=== PATIENT | male | born 1940 | race Caucasian/White ===

== ENCOUNTER → 2016-11-02 | Outpatient (CLI) | payer MEDICARE ==
--- NOTE | 2016-11-02 10:19 | XR ---
EXAMINATION TYPE: XR cervical spine comp DATE OF EXAM: 11/02/2016 10:01 AM COMPARISON: NONE HISTORY: Pain The odontoid is intact. There are no compression deformities. The prevertebral soft tissue structur es are within normal limits. Multilevel facet arthropathy seen. Severe degenerative disc disease C5- C6 and C6-C7 with posterior spondylosis. Foraminal encroachment suggested. Calcification soft tissue the neck likely vascular. IMPRESSION: 1. Multilevel degenerative disc disease. Consider follow-up MRI..
--- NOTE | 2016-11-02 10:20 | XR ---
EXAMINATION TYPE: XR chest 2V DATE OF EXAM: 11/02/2016 10:01 AM COMPARISON: 06/22/2014 HISTORY: COPD FINDINGS: Hyperinflation suggests COPD. No overt failure. No consolidation. No pneumothorax. Hypertrophic mccormack e of the spine and atherosclerotic change aorta. Subsegmental atelectasis involving the right middle lobe suspected. IMPRESSION: 1. No acute process. Correlate for COPD. 2. Minimal blunting of the costophrenic angles on the lateral view could be related to tiny amount of pleural fluid or pleural thickening.
--- NOTE | 2016-11-02 10:22 | XR ---
EXAMINATION TYPE: XR knee complete RT DATE OF EXAM: 11/02/2016 10:01 AM COMPARISON: None HISTORY: Right knee pain FINDINGS: Postsurgical changes in near-anatomic alignment. There is osteopenic changes involving the tibial kary teau. Remote posttraumatic change involving the fibula. No acute fracture. No dislocation. Vascular calcifications are seen. IMPRESSION: 1. Postoperative change. If there is concern for infection or loosening correlate with nuclear medici ne exam.
--- NOTE | 2016-11-02 10:24 | XR ---
EXAM TYPE: LUMBAR SPINE X RAY SERIES COMPARISON: NONE HISTORY: Back pain FINDINGS: Alignment is anatomic. The pedicles are intact. The transverse processes are intact. There is diff use osteopenia and multilevel degenerative disc disease with facet arthropathy. Scoliotic curvature n oted. IMPRESSION: 1. Multilevel degenerative disc disease and scoliosis..
== END | disposition home or self-care (01) ==
LOC: RADXRMAIN 09:31
PROVIDERS: ATTEND Family Medicine
DX: M50.10 Cervical disc disorder with radiculopathy, unspecified cervical region (principal); R91.8 Other nonspecific abnormal finding of lung field; M46.96 Unspecified inflammatory spondylopathy, lumbar region; M51.36 Other intervertebral disc degeneration, lumbar region; Z96.659 Presence of unspecified artificial knee joint
CPT/HCPCS: 71020; 72050; 72100

== ENCOUNTER → 2016-11-21 | Outpatient (CLI) | payer MEDICARE ==
--- NOTE | 2016-11-21 13:31 | NM ---
EXAMINATION TYPE: NM bone 3 phase DATE OF EXAM: 11/21/2016 1:23 PM COMPARISON: NONE HISTORY: Right knee pain Triple phase bone scintigraphy was performed following the injection of 26.6 mCi Tc 99m MDP. Immedia te images and 4 hours post injection images acquired. FINDINGS: There is symmetric flow to both knees. There appear to be photopenic defects compatible with previous prostheses. There is increased soft tissue uptake laterally on the right. Delayed imaging demonstrates slightly a symmetric uptake involving the posterior margin of the right tibia. IMPRESSION: Increased soft tissue uptake along the lateral margin of the right prostheses appears to be within th e soft tissues. There does appear to be slightly asymmetric uptake involving the posterior tibia on t he right is nonspecific and likely postsurgical. No diagnostic evidence of infection or loosening. If there is high clinical concern correlate with tagged WBC study.
== END | disposition home or self-care (01) ==
LOC: RADNMMAIN 07:23
PROVIDERS: ATTEND Orthopaedic Surgery
DX: M79.661 Pain in right lower leg (principal); Z96.652 Presence of left artificial knee joint
CPT/HCPCS: 78315; A9503

== ENCOUNTER → 2016-12-19 | Outpatient (CLI) | payer MEDICARE ==
--- NOTE | 2016-12-19 15:51 | US ---
EXAMINATION TYPE: US kidneys/renal and bladder DATE OF EXAM: 12/19/2016 3:10 PM COMPARISON: Prior kidney ultrasound 18 March 2015 CLINICAL HISTORY: N39.0 Recurrent UTI. EXAM MEASUREMENTS: Right Kidney: 10.6 x 4.1 x 4.7 cm Left Kidney: 10.7 x 6.0 x 5.5 cm TECHNOLOGIST IMPRESSION: wnl Right Kidney: lateral cyst measuring 2.1 x 1.1 x 1.4 cm Left Kidney: medial cyst measuring 2.1 x 2.1 x 2.6 cm Bladder: wnl Bilateral Jets seen: Yes There is no evidence for hydronephrosis at this point in time. No nephrolithiasis is seen. No daniel s are identified. The urinary bladder is anechoic. Bilateral ureteral jets are seen. Renal cysts are essentially stable and are simple in appearance. Inferior mass effect on the bladder is again noted likely due to enlarged prostate. IMPRESSION: Similar findings to prior exam. Prostatic enlargement. Simple cysts bilaterally within the kidneys.
== END | disposition home or self-care (01) ==
LOC: RADUSWWP 14:49
PROVIDERS: ATTEND Urology
DX: N40.0 Benign prostatic hyperplasia without lower urinary tract symptoms (principal); N28.1 Cyst of kidney, acquired; N39.0 Urinary tract infection, site not specified
CPT/HCPCS: 76770

== ENCOUNTER → 2017-01-10 | Outpatient (CLI) | payer MEDICARE ==
--- NOTE | 2017-01-10 10:01 | MR ---
EXAMINATION TYPE: MR lumbar spine wo con DATE OF EXAM: 01/10/2017 9:39 AM COMPARISON: 01/06/2011 HISTORY: Low back pain TECHNIQUE: T1 and T2 axial and sagittal images of the lumbar spine are submitted. FINDINGS: There is no abnormal signal seen within the visualized spinal cord or paraspinal soft tissu es. At T12-L1 there is mild hypertrophic change of the facets. No canal stenosis or disc herniation. Neur al foramina patent. At L1-2 there is mild disc desiccation and facet arthropathy. No canal stenosis or foraminal encroach ment. No disc herniation. At L2-3 there is circumferential disc bulging with moderate facet arthropathy and ligamentum flavum h ypertrophy. Borderline to mild canal stenosis with mild to moderate bilateral foraminal encroachment. At L3-4 there is slight anterior listhesis. Severe facet arthropathy and ligamentum flavum hypertroph y. Moderate bilateral foraminal encroachment. Borderline to mild canal stenosis. At L4-5 there is moderate facet arthropathy greater on the right. There is mild to moderate bilateral foraminal encroachment greater on the right. No canal stenosis or focal herniation. At L5-S1 there is facet arthropathy but no disc herniation, canal stenosis, or foraminal encroachment . IMPRESSION: 1. Multilevel facet arthropathy and foraminal encroachment as discussed above with borderline to mild canal stenosis L2-3 and L3-L4. 2. T11-T12 is only included on the sagittals but there appears to be a left paracentral disc bulge.
== END | disposition home or self-care (01) ==
LOC: RADMRIMAIN 08:52
PROVIDERS: ATTEND Physical Medicine & Rehabilitation
DX: M48.06 Spinal stenosis, lumbar region (principal); M46.96 Unspecified inflammatory spondylopathy, lumbar region
CPT/HCPCS: 72148

== ENCOUNTER → 2017-03-09 | Outpatient (CLI) | payer MEDICARE ==
--- NOTE | 2017-03-10 07:50 | MR ---
MRI CERVICAL SPINE: CLINICAL HISTORY: Cervicalgia, spondylolisthesis, and spondylosis without myelopathy or radiculopathy all per order. Headaches with chronic neck pain for years per patient. TECHNIQUE: Multiplanar, multisequence imaging of the cervical spine is performed without IV contrast. COMPARISON: None. FINDINGS: Sagittal images of the cervical spine show the craniocervical junction to appear within nor mal limits. The cervical and upper thoracic spinal cord is normal in course, caliber, and signal. V ertebral alignment is anatomic. The vertebral body heights are normal. There is moderate disc space narrowing C5-C6 and C6-C7 levels. Multiple small posterior disc herniations and spur disc complexes a re seen on sagittal images. There is mild to moderate anterior spurring in the mid to lower cervical spine. The bone marrow signal intensity is within normal limits. Axial images shows right paracentral broad-based disc protrusion effacing anterolateral thecal sac wi th asymmetric mild to moderate right-sided neural foraminal narrowing as there is some marginal spurr ing present near axial image 45, left-sided neural foramen is patent. Axial images at C3-C4 level show uncovertebral facet degenerative changes bilaterally. There is right paracentral/foraminal spur disc complex effacing anterolateral thecal sac. There is moderate right a nd mild left-sided neural foraminal narrowing at this level identified. Axial images at C4-C5 level show uncovertebral facet degenerative changes bilaterally causing asymmet lila mild left greater than right neural foraminal narrowing. There is small central disc protrusion m inimally effacing anterior thecal sac on axial image 31. Axial images at C5-C6 level show right paracentral spur disc complex effacing anterolateral thecal sa c up to ventral surface of spinal cord with marginal spurring causing moderate to severe bilateral ne ural foraminal narrowing on axial image 22. Axial images at C6-C7 level show lobulated broad-based posterior disc protrusion effacing anterior th ecal sac and causing moderate bilateral neural foraminal narrowing. Axial images at C7-T1 level are felt within normal limits. IMPRESSION: Multilevel degenerative changes in the cervical spine as detailed above most prominent at C5-C6 level.
== END | disposition home or self-care (01) ==
LOC: RADMRIMAIN 15:34
PROVIDERS: ATTEND Physical Medicine & Rehabilitation
DX: M47.812 Spondylosis without myelopathy or radiculopathy, cervical region (principal); Z96.653 Presence of artificial knee joint, bilateral
CPT/HCPCS: 72141

== ENCOUNTER → 2017-12-01 | Outpatient (CLI) | payer MEDICARE ==
[2017-12-01 10:25] LABS: Basophils # (A) 0.1 k/uL (0-0.2); Basophils % (A) 1 %; Eosinophils # (A) 0.3 k/uL (0-0.7); Eosinophils % (A) 5 %; HCT 44.6 % (39.0-53.0); HGB 14.6 gm/dL (13.0-17.5); Lymphocytes # (A) 1.4 k/uL (1.0-4.8); Lymphocytes % (A) 24 %; MCH 32.8 pg (25.0-35.0); MCHC 32.8 g/dL (31.0-37.0); MCV 100.2 fL (80.0-100.0); Mean Platelet Volume 7.2; Monocytes # (A) 0.3 k/uL (0-1.0); Monocytes % (A) 4 %; Neutrophils # (A) 3.8 k/uL (1.3-7.7); Neutrophils % (A) 65 %; Platelet Count 198 k/uL (150-450); RBC 4.46 m/uL (4.30-5.90); RDW 12.5 % (11.5-15.5)
[2017-12-01 11:54] LABS: Erythrocyte Sedimentation Rate 2 mm/hr (0-15)
== END | disposition home or self-care (01) ==
LOC: LABWHC1 09:47
PROVIDERS: ATTEND Physical Medicine & Rehabilitation
DX: M50.321 Other cervical disc degeneration at C4-C5 level (principal); M47.812 Spondylosis without myelopathy or radiculopathy, cervical region; M79.1 Myalgia
CPT/HCPCS: 36415; 85025; 85652; 86140

== ENCOUNTER → 2018-01-05 | Outpatient (CLI) | payer MEDICARE ==
[2018-01-05 14:40] LABS: HCT 40.4 % (39.0-53.0); MCH 33.6 pg (25.0-35.0); MCHC 34.7 g/dL (31.0-37.0); MCV 96.7 fL (80.0-100.0); Mean Platelet Volume 6.9; Platelet Count 208 k/uL (150-450); RBC 4.18 m/uL (4.30-5.90); RDW 12.4 % (11.5-15.5); WBC 5.8 k/uL (3.8-10.6)
[2018-01-05 15:38] LABS: T4, Free (Free Thyroxine) 0.87 ng/dL (0.78-2.19)
== END | disposition home or self-care (01) ==
LOC: LABWHC1 14:06
PROVIDERS: ATTEND Internal Medicine Cardiovascular Disease
DX: E03.9 Hypothyroidism, unspecified (principal); I10 Essential (primary) hypertension
CPT/HCPCS: 36415; 84439; 84443; 85027

== ENCOUNTER → 2018-01-11 | Outpatient (CLI) | payer MEDICARE ==
--- NOTE | 2018-01-15 13:27 | ECHOF ---
Referral Reason:R07.89 Other chest pain MEASUREMENTS -------- HEIGHT: 162.6 cm WEIGHT: 79.4 kg BP: IVSd: 1.2 cm (0.6 - 1.1) LVIDd: 4.5 cm (3.9 - 5.3) LVPWd: 1.3 cm (0.6 - 1.1) IVSs: 1.5 cm LVIDs: 3.3 cm LVPWs: 1.5 cm LA Diam: 3.0 cm (2.7 - 3.8) LAESV Index (A-L): 39.09 ml/m Ao Diam: 4.0 cm (2.0 - 3.7) LA Diam: 3.5 cm (2.7 - 3.8) AV Cusp: 2.2 cm (1.5 - 2.6) EPSS: 0.4 cm MV E Adilson: 0.51 m/s MV DecT: 220 ms MV A Adilson: 0.67 m/s MV E/A Ratio: 0.77 AR PHT: 670 ms RAP: 5.00 mmHg RVSP: 28.82 mmHg MV EF SLOPE: 103.93 mm/s (70 - 150) MV EXCURSION: 20.65 mm (> 18.000) FINDINGS -------- Sinus rhythm. This was a technically good study. The left ventricular size is normal. There is mild concentric left ventricular hypertrophy. Overa ll left ventricular systolic function is normal with, an EF between 55 - 60 %. The right ventricle is normal in size. LA is moderately dilated 34-39 ml/m2 The right atrial size is normal. There is mild aortic valve sclerosis. There is mild aortic regurgitation. Mild mitral annular calcification present. Mild mitral regurgitation is present. Mild tricuspid regurgitation present. There is no evidence of pulmonary hypertension. The right v entricular systolic pressure, as measured by Doppler, is 28.82mmHg. There is no pulmonic regurgitation present. Aortic Root is mildly dilated and measures 4.0cm. There is no pericardial effusion. CONCLUSIONS -------- 1. The left ventricular size is normal. 2. There is mild concentric left ventricular hypertrophy. 3. Overall left ventricular systolic function is normal with, an EF between 55 - 60 %. 4. LA is moderately dilated 34-39 ml/m2 5. There is mild aortic valve sclerosis. 6. There is mild aortic regurgitation. 7. Mild mitral annular calcification present. 8. Mild mitral regurgitation is present. 9. Mild tricuspid regurgitation present. 10. There is no evidence of pulmonary hypertension. 11. The right ventricular systolic pressure, as measured by Doppler, is 28.82mmHg. 12. There is no pulmonic regurgitation present. 13. There is no pericardial effusion. PASSENGER SERVICE SUPERVISOR: Lorna Bain RDCS
== END | disposition home or self-care (01) ==
LOC: RADECHMAIN 08:32
PROVIDERS: ATTEND Family Medicine
DX: I08.3 Combined rheumatic disorders of mitral, aortic and tricuspid valves (principal)
CPT/HCPCS: 93306

== ENCOUNTER → 2018-01-29 | Outpatient (CLI) | payer MEDICARE | END | disposition home or self-care (01) | LOC: LABWHC1 15:56 | PROVIDERS: ATTEND Family Medicine | DX: R42 Dizziness and giddiness (principal) | CPT/HCPCS: 36415; 82565 ==

== ENCOUNTER → 2018-01-31 | Outpatient (CLI) | payer MEDICARE ==
--- NOTE | 2018-01-31 09:29 | MR ---
EXAMINATION TYPE: MR brain wo/w con DATE OF EXAM: 01/31/2018 COMPARISON: NONE HISTORY: 77-year-old male Dizziness and giddiness TECHNIQUE: Multiplanar, multisequence images of the brain and brainstem were acquired before and aft er administration of 7.5 mL IV Gadavist. Diffusion weighted imaging is performed. FINDINGS: No evidence for acute infarction, hemorrhage, mass, mass effect, midline shift, herniation, effacemen t of basal cisterns, or extra-axial fluid collection. There is moderate generalized supratentorial volume loss. No hydrocephalus. Major intracranial flow voids are intact. T2/FLAIR weighted sequences show moderate to severe scattered burden of right white matter change in the subcortical, deep white matter, and periventricular regions of both cerebral hemispheres. Midline structures demonstrate normal morphology. The craniocervical junction is normal. Post contrast images demonstrate no evidence of pathologic enhancement. Dural venous sinuses are pat ent. Moderate to severe mucosal thickening in the ethmoid air cells and left frontal sinus and mild within the right frontal and bilateral maxillary sinuses. Globes are intact with prior cataract surgery. Prominent retained fluid throughout the right mastoid air cells and a small amount in the inferior le ft mastoid air cells. IMPRESSION: 1. Moderate cerebral atrophy. No acute intracranial abnormality seen. 2. Moderate to severe scattered burden of T2 bright white matter change in the cerebral hemispheres. Some differential considerations include changes of chronic small vessel ischemic disease, demyelina ting disease, hypertension, vasculitis/Lyme disease, and severe chronic migraines. 3. Trapped fluid in the right greater than left mastoid air cells. Correlate for any mastoid pain to exclude mastoiditis. 4. Moderate chronic paranasal sinus disease.
== END ==
LOC: RADMRIMAIN 08:11
PROVIDERS: ATTEND Family Medicine
DX: G31.9 Degenerative disease of nervous system, unspecified (principal); R90.89 Other abnormal findings on diagnostic imaging of central nervous system; R93.8 Abnormal findings on diagnostic imaging of other specified body structures
CPT/HCPCS: 70553; A9581

== ENCOUNTER → 2018-08-27 | Outpatient (CLI) | payer MEDICARE ==
[2018-08-27 11:53] LABS: Blood Urea Nitrogen 14 mg/dL (9-20)
--- NOTE | 2018-08-27 13:25 | CT ---
EXAMINATION TYPE: CT abdomen pelvis wo/w con DATE OF EXAM: 08/27/2018 COMPARISON: None HISTORY: Gross hematuria. CT DLP: 1067.5 mGycm CONTRAST: CT scan of the abdomen and pelvis is performed with Oral Contrast and without and with IV Contrast, p atient injected with 100 mL of Isovue M300. FINDINGS: LUNG BASES-: No visible nodule. No infiltrate. LIVER/GB: No calcified gallstones. No space occupying hepatic lesion. Biliary tree is of normal ca liber. PANCREAS: No inflammation. No distinct mass. Focal peripancreatic calcification. SPLEEN: No splenic enlargement. No lesion seen. ADRENALS: No nodule. No thickening. KIDNEYS/BLADDER: No hydronephrosis. No nephrolithiasis. No distinct solid renal mass. [address] cyst right kidney. Dominant simple cyst lower pole left kidney measures 2.6 cm. Urinary bladder g rossly unremarkable. BOWEL: Normal appendix. Normal bowel caliber. No inflammation. Moderate fecal stasis. GENITAL ORGANS: Prostate gland enlargement LYMPH NODES: No greater than 1cm abdominal or pelvic lymph nodes are appreciated. AORTA: No significant abnormality. OSSEOUS STRUCTURES: No significant abnormality is seen. OTHER: No significant additional abnormality is seen. IMPRESSION: 1.
== END | disposition home or self-care (01) ==
LOC: RADCTMAIN 11:13
PROVIDERS: ATTEND Family Medicine
DX: R31.9 Hematuria, unspecified (principal)
CPT/HCPCS: 82565; 84520; 74178; 36415; Q9967

== ENCOUNTER 2018-10-25 09:02 | Day surgery (SDC) | payer MEDICARE ==
[2018-10-24 10:26] VITALS: BMI 24.0
[~2018-10-25 09:02] MED LIST: LACTATED RINGERS 1,000 ML IV SCH; LIDOCAINE 1% 20 ML VIAL (10MG/ML) FOR IV START INTRADERMA PRN
[2018-10-25 10:01] VITALS: TEMP 97.6
[2018-10-25] MEDS ORDERED: PROPOFOL 10 MG/ML 20 ML VIAL IV ONE (11:14)
[2018-10-25] MEDS ORDERED: LIDOCAINE 1% INJ 10MG/ML (20 ML MDV) ONE (11:14)
--- NOTE | 2018-10-25 12:09 | P.PCN ---
Date of Procedure: 10/25/18 Procedure(s) Performed: Procedure: Total colonoscopy. Preoperative diagnosis: Screening for neoplasia. Patient has history of polyps. Postoperative diagnosis: Sigmoid diverticulosis with no evidence of acute diverticulitis, strictures, polyps or cancer. Preparation: HalfLytely prep. Sedation: Was provided by anesthesia. Brief clinical history: The patient is a 77-year-old male who is scheduled for this evaluation for screening for neoplasia age being his risk factor. He had history of polyps. Last colonoscopy in 2009. The patient has no abdominal complaints, bleeding or anemia. Procedure: With the patient on his left lateral decubitus position and after informed consent and adequate sedation, the perianal area was inspected and it did not show any fissures or fistulas. There were no masses felt on digital rectal examination. The Olympus CFH 190LVideo colonoscope was then inserted in the rectum in the usual fashion and advanced to the cecum. There were multiple diverticular orifices seen scattered in the sigmoid but I saw no evidence of acute diverticulitis or strictures. No polyps or tumors were seen. I retroflexed the endoscope in the rectum before the endoscope was withdrawn. The patient tolerated the procedure well. Plan: The patient was reassured. Discussed dietary measures. At his age, I did not schedule repeat exam in 5 years and that can be kept as a contingency based on his overall health at that time. He will discuss that with you and he will follow with you as planned
[2018-10-25 12:10] VITALS: BP 147/78; PULSE 78; RESP 18
== END 2018-10-25 12:21 | disposition home or self-care (01) ==
LOC: ORWHC2ENDO 09:02
DX: Z12.11 Encounter for screening for malignant neoplasm of colon (principal); K57.30 Diverticulosis of large intestine without perforation or abscess without bleeding; Z86.010 Personal history of colon polyps; K21.9 Gastro-esophageal reflux disease without esophagitis; I25.10 Atherosclerotic heart disease of native coronary artery without angina pectoris; I10 Essential (primary) hypertension; I25.2 Old myocardial infarction; M19.90 Unspecified osteoarthritis, unspecified site; N40.0 Benign prostatic hyperplasia without lower urinary tract symptoms; Z79.01 Long term (current) use of anticoagulants; Z79.891 Long term (current) use of opiate analgesic; Z79.899 Other long term (current) drug therapy
CPT/HCPCS: J2001; J2704; G0105

== ENCOUNTER 2020-03-25 10:24 | Day surgery (SDC) | payer MEDICARE ==
[2020-03-24 09:15] VITALS: BMI 21.2
[~2020-03-25 10:24] MED LIST changes: -LIDOCAINE 1% 20 ML VIAL (10MG/ML) FOR IV START INTRADERMA PRN
[2020-03-25 11:18] VITALS: RESP 16; TEMP 97.8
[2020-03-25] MEDS ORDERED: PROPOFOL 10 MG/ML 20 ML VIAL IV ONE (12:05)
[2020-03-25] MEDS ORDERED: LIDOCAINE 1% INJ 10MG/ML (20 ML MDV) ONE (12:05)
--- NOTE | 2020-03-25 12:17 | P.PCN ---
Date of Procedure: 03/25/20 Procedure(s) Performed: BRIEF HISTORY: Patient is a 79-year-old, pleasant, male scheduled for an upper endoscopy as part of evaluation of progressive dysphagia to solids and liquids for the last 2 years duration.. PROCEDURE PERFORMED: Esophagogastroduodenoscopy with biopsy. PREOPERATIVE DIAGNOSIS: Dysphagia to solids and liquids of 2 years duration. IV sedation per anesthesia. PROCEDURE: After informed consent was obtained, the patient was brought into the endoscopy unit. IV sedation was administered by Anesthesia under continuous monitoring. Initially the Olympus GIF-140 video endoscope was inserted into the mouth. Esophagus intubated without any difficulty. It was gradually advanced into the distal esophagus and the lower esophageal sphincter appeared tight but with gentle pressure I was able to push the scope into the stomach and duodenum and carefully examined. The bulb and the second part of the duodenum appeared normal. The scope at this time was withdrawn to the stomach, adequately insufflated with air, and upon careful examination, mucosa of the antrum, body, cardia and the fundus appeared normal. The scope was then withdrawn into the esophagus. The GE junction was located at 41 cm from the incisors. The LES once again appeared tight but no obvious stricture identified. The esophagus appeared normal. There were no erosions or ulcerations seen. Biopsies were done from the mid and distal esophagus and the patient tolerated the procedure well. IMPRESSION: 1. Tight lower esophageal sphincter but no obvious esophagitis or esophageal stricture identified. RECOMMENDATIONS: The findings of this examination were discussed with the patient as well as his family. He will begin given a trial of Prilosec 20 mg daily for 4 weeks. He'll be seen in office in 4 weeks and if he still has persistent symptoms we will schedule for esophageal manometry to evaluate for es ophageal dysmotility/esophageal achalasia
[2020-03-25 12:54] VITALS: BP 138/71; PULSE 61
== END 2020-03-25 12:56 | disposition home or self-care (01) ==
LOC: ORWHC2ENDO 10:24
PROVIDERS: ATTEND Internal Medicine Gastroenterology
DX: K21.0 Gastro-esophageal reflux disease with esophagitis (principal); I25.2 Old myocardial infarction; I25.10 Atherosclerotic heart disease of native coronary artery without angina pectoris; I10 Essential (primary) hypertension; N40.0 Benign prostatic hyperplasia without lower urinary tract symptoms; Z79.01 Long term (current) use of anticoagulants; Z79.899 Other long term (current) drug therapy
CPT/HCPCS: 88305; 43239; J2001; J2704

== ENCOUNTER → 2020-05-16 | Outpatient (CLI) | payer MEDICARE ==
--- NOTE | 2020-05-16 08:19 | CT ---
EXAMINATION TYPE: CT chest wo con DATE OF EXAM: 05/16/2020 COMPARISON: 11/18/2014 HISTORY: hemoptysis CT DLP: 199.5 mGycm. Automated Exposure Control for Dose Reduction was Utilized. TECHNIQUE: CT scan of the thorax is performed without IV contrast. FINDINGS: LUNGS: Diffuse emphysematous changes with subsegmental areas of consolidation. Basilar bronchiectasis noted. No suspicious masses seen.. MEDIASTINUM: Lack of IV contrast is noted to limit evaluation for mediastinal and especially hilar ad enopathy. There are no definitive greater than 1 cm hilar or mediastinal lymph nodes. The heart is en larged and there is coronary artery calcification. Ascending aorta measures 4 cm compatible with mild aneurysmal dilation. A trace of pericardial fluid. OTHER: Hypertrophic and degenerative changes of the spine. Calcification along the anterior margin th e spleen noted.. IMPRESSION: 1. Diffuse COPD with subsegmental areas of consolidation most typical of atelectasis. No suspicious p ulmonary mass. 2. Cardiomegaly with coronary artery atherosclerotic changes correlate clinically.
== END | disposition home or self-care (01) ==
LOC: RADCTMAIN 07:44
PROVIDERS: ATTEND Family Medicine
DX: J98.11 Atelectasis (principal); I51.7 Cardiomegaly; I25.10 Atherosclerotic heart disease of native coronary artery without angina pectoris
CPT/HCPCS: 71250

== ENCOUNTER → 2020-07-01 | Outpatient (CLI) | payer MEDICARE ==
[2020-07-01 10:32] LABS: HCT 39.4 % (39.0-53.0); HGB 12.9 gm/dL (13.0-17.5); MCH 33.2 pg (25.0-35.0); MCHC 32.7 g/dL (31.0-37.0); MCV 101.7 fL (80.0-100.0); Platelet Count 281 k/uL (150-450); RBC 3.87 m/uL (4.30-5.90); RDW 12.9 % (11.5-15.5); WBC 7.6 k/uL (3.8-10.6)
[2020-07-01 18:41] LABS: African American GFR (CKD) 97.8 (60.0-200.0); BUN/Creat Ratio 17.5 Ratio (12.00-20.00); Calcium 8.6 mg/dL (8.7-10.3); Non-African American GFR(CKD) 84.4 (60.0-200.0); Potassium 4.5 mmol/L (3.5-5.5)
[2020-07-01 18:42] LABS: Chol/HDL Ratio 3.37; LDL Cholesterol,Calculated 85.2 mg/dL (0.0-131.0); VLDL Calculation 16.8 mg/dL (5.00-40.00)
== END | disposition home or self-care (01) ==
LOC: LABWHC1 09:07
PROVIDERS: ATTEND Internal Medicine Cardiovascular Disease
DX: E78.2 Mixed hyperlipidemia (principal)
CPT/HCPCS: 36415; 80048; 80061; 84443; 84450; 84460; 85027

== ENCOUNTER → 2021-04-07 | Outpatient (CLI) | payer MEDICARE ==
--- NOTE | 2021-04-11 22:12 | MR ---
EXAMINATION TYPE: MR lumbar spine wo con DATE OF EXAM: 04/07/2021 COMPARISON: 01/10/2017 HISTORY: 80-year-old male LBP, radiates into right hip. TECHNIQUE: Multiplanar, multisequence images of the lumbar spine were acquired. FINDINGS: Mildly aneurysmal upper abdominal aorta at 3.1 cm. Borderline ectasia infrarenal abdominal aorta 2.5 cm. Multiple renal cortical cysts are present measuring up to 3.1 cm. Vertebral body heights are preserved. Hypertrophic facet arthropathy throughout. Ligamentum flavum thickening throughout. Accentuated lumba r lordosis. Degenerative grade 1 anterolisthesis L3-L4. Mild multilevel degenerative disc disease with variable disc desiccation and disc bulging. There is an anterior annular fissure towards the left at L3-L4 level is present in 2017 as well. Conus medullaris is normal. No suspicious bone marrow replacement. At T12-L1, no spinal canal near foraminal stenosis. At L1-L2, mild ligamentum flavum thickening and facet arthropathy. No significant spinal canal stenos is. There is mild left neural foraminal stenosis. At L2-L3, mild disc bulge, ligamentum flavum thickening, and facet arthropathy. No spinal canal steno sis. There is [id number] left neuroforaminal stenosis. At L3-L4, hypertrophic facet arthropathy with ligamentum flavum thickening, mild disc bulge, and grad e 1 anterolisthesis. There is impression on the ventral and dorsal thecal sac without significant spi nal canal stenosis. Changes result in a moderate right and mild left neuroforaminal stenosis. At L4-L5, facet arthropathy, ligamentum flavum thickening, and mild disc bulge. No spinal canal steno sis. There is mild bilateral neuroforaminal stenosis. At L5-S1, facet arthropathy. No spinal canal or neuroforaminal stenosis. IMPRESSION: 1. Relatively stable exam from 2017 with mild multilevel degenerative disc disease, ligamentum flavum thickening, and hypertrophic facet arthropathy. 2. Accentuated lumbar lordosis with grade 1 anterolisthesis at L3-L4. 3. No large focal disc herniation or significant spinal canal stenosis. 4. Variable [id number] neuroforaminal stenoses as outlined above, moderate on the right at L3-L 4. 5. 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
== END | disposition home or self-care (01) ==
LOC: RADMRIMAIN 15:20
PROVIDERS: ATTEND Physical Medicine & Rehabilitation
DX: M51.16 Intervertebral disc disorders with radiculopathy, lumbar region (principal); M47.27 Other spondylosis with radiculopathy, lumbosacral region; M99.73 Connective tissue and disc stenosis of intervertebral foramina of lumbar region; M43.16 Spondylolisthesis, lumbar region
CPT/HCPCS: 72148

== ENCOUNTER → 2021-06-11 | Outpatient (CLI) | payer MEDICARE ==
--- NOTE | 2021-06-11 10:43 | CT ---
EXAMINATION TYPE: CT abdomen pelvis wo con DATE OF EXAM: 06/11/2021 COMPARISON: 08/27/2019 HISTORY: Abnormal weight loss CT DLP: 264.4 mGycm Examination of the solid and hollow viscera is limited given the lack of contrast. FINDINGS: LUNG BASES: No evidence for nodule. Basilar atelectasis and/or parenchymal scarring. LIVER/GB: The gallbladder is unremarkable. No space-occupying hepatic lesion. PANCREAS: No pancreatic mass identified. No inflammatory process seen. SPLEEN: No evidence for splenomegaly. No intrasplenic lesions seen. ADRENALS: No adrenal nodules identified. No evidence for thickening. KIDNEYS: Nonobstructing calculus lower pole right kidney measures 2.5 mm. Hypoattenuating renal lesio ns persist which may reflect cysts. No hydronephrosis. BOWEL: Appendix has a normal appearance. No evidence of bowel obstruction. No inflammatory process. Lymph nodes: No evidence for adenopathy greater than 1 cm. Abdominal aorta: Atheromatous changes seen. No evidence for aneurysm. Genital organs: Prostate gland enlargement. Other: No significant abnormality. IMPRESSION: 1. No significant abnormality to account for the patient's symptoms.
== END | disposition home or self-care (01) ==
LOC: RADCTMAIN 08:41
PROVIDERS: ATTEND Family Medicine
DX: R63.4 Abnormal weight loss (principal)
CPT/HCPCS: 74176

== ENCOUNTER → 2021-09-22 | Outpatient (CLI) | payer MEDICARE ==
[2021-09-22 08:19] LABS: African American GFR (CKD) >90 (>60 ml/min/1.73 sqM); Blood Urea Nitrogen 18 mg/dL (9-20); Non-African American GFR(CKD) 86 (>60 ml/min/1.73 sqM)
--- NOTE | 2021-09-22 11:09 | CT ---
EXAMINATION TYPE: CT angio chest DATE OF EXAM: 09/22/2021 COMPARISON: CT chest May 16, 2020 HISTORY: thoracic aortic aneurysm CT DLP: 376.6 mGycm. Automated Exposure Control for Dose Reduction was Utilized. CONTRAST: CTA scan of the thorax is performed without and with IV Contrast, patient injected with 100 mL of Iso radha 370, aneurysm protocol. . 3D reconstructed images are created on an independent workstation and r eviewed. FINDINGS: LUNGS: Moderate underlying emphysematous changes are redemonstrated. Mild anterior and scattered left greater than right bibasilar linear scarring is redemonstrated. No pleural effusion or pneumothorax seen bilaterally. No new consolidation. No masses. MEDIASTINUM: Ascending aortic aneurysm up to 4.5 cm and the aortic root measures 32 prominent from pr ior. Ascending aorta measures up to 3.9 cm This point similar to prior. Normal three-vessel origin from the aorta. No significant stenosis from great vessels. Mild to moderate mixed plaque in the thoracic aorta. Moderate noncalcified peripheral plaque in the left subclavian artery without significant stenosis. There are no greater than 1 cm hi lar or mediastinal lymph nodes. No cardiomegaly or pericardial effusion is seen. Moderate right atr ial dilatation. Mild to moderate right ventricular dilatation. OTHER: Osseous structures are demineralized. Underlying scoliosis is present. Nonspecific sclerotic l esion left L1 vertebra coronal image 53 favors benign bone island. Focal dystrophic calcification ant erior to the spleen again seen and stable. IMPRESSION: Ascending aortic aneurysm up to 4.5 cm at the level of the aortic root now identified.
== END | disposition home or self-care (01) ==
LOC: RADCTMAIN 07:36
PROVIDERS: ATTEND Family Medicine
DX: I71.2 Thoracic aortic aneurysm, without rupture (principal)
CPT/HCPCS: 82565; 84520; 71275; 36415; Q9967

== ENCOUNTER 2023-07-13 13:54 | Inpatient (IN) | payer MEDICARE ==
[2023-07-13] MEDS ORDERED: SODIUM CHLORIDE 0.9% 500 ML 500 ML IV STA (14:38)
--- NOTE | 2023-07-13 14:43 | ED ---
Dizziness HPI - General Chief Complaint: Dizziness Stated Complaint: dizziness Time Seen by Provider: 07/13/23 14:20 Source: patient, EMS, RN notes reviewed Mode of arrival: EMS Limitations: no limitations - History of Present Illness Initial Comments: 82-year-old male history of hypertension and MD who states he had a dizzy lightheaded with the episode going on for about the last 2 weeks he states that a week ago he did ask she passed out but did not hurt himself. He is lightheaded with upright positioning. He was seen by his doctor's office and sent here for evaluation by EMS blood pressure 94/65 Orthostatic positive. On evaluation. Patient does have EKG today and it is different from one done previously today showing A. fib RVR. Patient denies any chest pain fevers chills nausea vomiting sweats no focal loss of upper or lower extremities function. Rate of note the patient does state he quit smoking about a month ago. He apparently does have ankle surgery pending at some point in the near future. MD Complaint: dizziness, lightheadedness - Related Data Home Medications Medication Instructions Recorded Confirmed Tamsulosin HCl [Flomax] 0.8 mg PO HS 11/17/15 07/13/23 Finasteride [Proscar] 5 mg PO DAILY 10/24/18 07/13/23 Rivaroxaban [Xarelto] 20 mg PO DAILY 10/24/18 07/13/23 oxyCODONE-APAP 10-325MG [Percocet 1 tab PO Q4H PRN 10/24/18 07/13/23 10-325 mg] amLODIPine [Norvasc] 5 mg PO DAILY 07/13/23 07/13/23 Allergies Allergy/AdvReac Type Severity Reaction Status Date / Time No Known Allergies Allergy Verified 03/25/20 11:01 Review of Systems ROS Statement: Those systems with pertinent positive or pertinent negative responses have been documented in the HPI. ROS Other: All systems not noted in ROS Statement are negative. Past Medical History Past Medical History: GERD/Reflux, Hypertension, Myocardial Infarction (MD), Osteoarthritis (OA) Additional Past Medical History / Comment(s): LOW IN VITAMIN D3 Last Myocardial Infarction Date:: UNKNOWN DATE - SHOW ON TESTS History of Any Multi-Drug Resistant Organisms: None Reported Past Surgical History: Hernia Repair, Joint Replacement Additional Past Surgical History / Comment(s): right ankle, TOTAL RIGHT KNEE, TOTAL LEFT KNEE REPLACEMENT Past Anesthesia/Blood Transfusion Reactions: No Reported Reaction Past Psychological History: No Psychological Hx Reported Smoking Status: Former smoker Past Alcohol Use History: Occasional Past Drug Use History: None Reported - Past Family History Mother Family Medical History: Hypertension Additional Family Medical History / Comment(s): MOTHER WITH DEMENTIA Father Family Medical History: Cancer Additional Family Medical History / Comment(s): FATHER HAD PROSTATE CANCER Brother(s) Family Medical History: Cancer General Exam - General Exam Comments Initial Comments: This is a well-developed well-nourished awake alert oriented 4 male Limitations: no limitations General appearance: alert, in no apparent distress Head exam: Present: atraumatic, normocephalic, normal inspection Eye exam: Present: normal appearance, PERRL, EOMI. Absent: scleral icterus, conjunctival injection, periorbital swelling ENT exam: Present: normal exam, mucous membranes moist Neck exam: Present: normal inspection, full ROM, other (No stridor JVD or bruits). Absent: tenderness, meningismus, lymphadenopathy Respiratory exam: Present: normal lung sounds bilaterally. Absent: respiratory distress, wheezes, rales, rhonchi, stridor Cardiovascular Exam: Present: tachycardia, irregular rhythm. Absent: systolic murmur, diastolic murmur, rubs, gallop, clicks GI/Abdominal exam: Present: soft, normal bowel sounds. Absent: distended, tenderness, guarding, rebound, rigid Extremities exam: Present: normal inspection, full ROM, normal capillary refill. Absent: tenderness, pedal edema, joint swelling, calf tenderness Back exam: Present: normal inspection Neurological exam: Present: alert, oriented X3, CN II-XII intact Psychiatric exam: Present: normal affect, normal mood Skin exam: Present: warm, dry, intact, normal color. Absent: rash Course Vital Signs 07/13/23 07/13/23 07/13/23 13:56 14:42 15:00 Temperature 98.2 F Pulse Rate 65 128 H 146 H Respiratory 20 18 18 Rate Blood Pressure 94/65 94/67 98/81 O2 Sat by Pulse 99 97 99 Oximetry 07/13/23 07/13/23 07/13/23 16:12 16:33 17:43 Temperature Pulse Rate 128 H 132 H 101 H Respiratory 18 16 18 Rate Blood Pressure 116/68 110/88 103/74 O2 Sat by Pulse 96 96 Oximetry 07/13/23 07/13/23 17:52 18:50 Temperature Pulse Rate 89 151 H Respiratory 18 18 Rate Blood Pressure 111/83 117/86 O2 Sat by Pulse 97 96 Oximetry - Reevaluation(s) Reevaluation #1: 07/13/23 14:46 Manual blood pressure does demonstrate proved the numbers EKG Findings - EKG Results: EKG: interpreted by ERMD (EKG interpreted by me a true for ablation a rapid ventricular response rate 123 QRS duration 138 to T/QTC 331/4 of a bundle-branch block pattern) Medical Decision Making - Medical Decision Making I did discuss findings with patient and family members patient has evidence of new onset atrial fibrillation with a rapid ventricular response also elevated troponin I. I did discuss the case with Dr. Che. Patient will be admitted with cardiology consultation patient will be given aspirin and started on heparin. He was started on Cardizem drip and given IV fluids he did demonstrate evidence a hypotensive episode however the number seen on the automatic blood pressure cuff did not correlate with clinical findings repeat showed adequate blood pressures.Was pt. sent in by a medical professional or institution (, PA, RAIL CAR WELDER, urgent care, hospital, or care home...) When possible be specific @ -No Did you speak to anyone other than the patient for history (EMS, parent, family, police, friend...)? What history was obtained from this source @ -[place], EMS Did you review nursing and triage notes (agree or disagree)? Why? @ -I reviewed and agree with nursing and triage notes Were old charts reviewed (outside hosp., previous admission, EMS record, old EKG, old radiological studies, urgent care reports/EKG's, care home records)? Report findings @ - old charts were reviewed Differential Diagnosis (chest pain, altered mental status, abdominal pain women, abdominal pain men, vaginal bleeding, weakness, fever, dyspnea, syncope, headache, dizziness, GI bleed, back pain, seizure, CVA, palpatations, mental health, musculoskeletal)? @ -Has, atrial fibrillation, but I'm depletion EKG interpreted by me (3pts min.). @ -As above EKG interpreted by me showed a fibrillation with a rapid ventricular response rate of 123 QRS 138 QT since QTC 331/44 the bundle-branch block. This is compared with EKG sent with the patient does correlate with today's clinic EKG however no older EKG dated 12/16/21 showed a sinus rhythm at that time with a left bundle branch block X-rays interpreted by me (1pt min.). @ -Chest x-ray interpreted by me negative for acute process CT interpreted by me (1pt min.). @ -None done U/S interpreted by me (1pt. min.). @ -None done What testing was considered but not performed or refused? (CT, X-rays, U/S, labs)? Why? @ -None What meds were considered but not given or refused? Why? @ -None Did you discuss the management of the patient with other professionals (professionals i.e. , PA, RAIL CAR WELDER, lab, RT, psych nurse, social services specialist, extrusion die corrector, teacher, chief operations officer, field case manager)? Give summary @ -Dr. Che Was smoking cessation discussed for >3mins.? @ -No A she recently stopped smoking Was critical care preformed (if so, how long)? @ -39 minutes Were there social determinants of health that impacted care today? How? (Homelessness, low income, unemployed, alcoholism, drug addiction, transportation, low edu. Level, literacy, decrease access to med. care, penitentiary, rehab)? @ -No Was there de-escalation of care discussed even if they declined (Discuss DNR or withdrawal of care, Hospice)? DNR status @ -No What co-morbidities impacted this encounter? (DM, HTN, Smoking, COPD, CAD, Cancer, CVA, ARF, Chemo, Hep., AIDS, mental health diagnosis, sleep apnea, morbid obesity)? @ -Former smoker] Was patient admitted / discharged? Hospital course, mention meds given and route , prescriptions, significant lab abnormalities, going to OR and other pertinent info. @ -hospital course he was admitted to this facility for evaluation new-onset rapid atrial fibrillation in addition to hypotensive episode but I'm depletion and elevated troponin Undiagnosed new problem with uncertain prognosis? @ -No Drug Therapy requiring intensive monitoring for toxicity (Heparin, Nitro, Insulin, Cardizem)? @ -Cardizem drip, heparin Were any procedures done? @ -No Diagnosis/symptom? @ -New-onset atrial fibrillation with rapid ventricular response, elevated troponin, hypotensive episode, dehydration] Acute, or Chronic, or Acute on Chronic? @ -Acute Uncomplicated (without systemic symptoms) or Complicated (systemic symptoms)? @ -Complicated Side effects of treatment? @ -No Exacerbation, Progression, or Severe Exacerbation? @ -No Poses a threat to life or bodily function? How? (Chest pain, USA, MD, pneumonia, PE, COPD, DKA, ARF, appy, cholecystitis, CVA, Diverticulitis, Homicidal, Suicidal, threat to staff... and all critical care pts) @ - new-onset rapid atrial fibrillation, elevated troponin, hypotensive episode - Lab Data Result diagrams: 07/13/23 14:42 07/13/23 09:00 Lab Results 07/13/23 07/13/23 07/13/23 Range/Units 09:00 14:42 14:42 WBC 8.4 (3.8-10.6) k/uL RBC 4.00 L (4.30-5.90) m/uL Hgb 14.4 (13.0-17.5) gm/dL Hct 41.5 (39.0-53.0) % MCV 103.7 H (80.0-100.0) fL MCH 36.0 H (25.0-35.0) pg MCHC 34.7 (31.0-37.0) g/dL RDW 12.2 (11.5-15.5) % Plt Count 175 (150-450) k/uL MPV 7.5 Neutrophils % 77 % Lymphocytes % 17 % Monocytes % 4 % Eosinophils % 2 % Basophils % 0 % Neutrophils # 6.4 (1.3-7.7) k/uL Lymphocytes # 1.5 (1.0-4.8) k/uL Monocytes # 0.3 (0-1.0) k/uL Eosinophils # 0.1 (0-0.7) k/uL Basophils # 0.0 (0-0.2) k/uL Macrocytosis Slight PT 14.1 H (9.0-12.0) sec INR 1.4 H (<1.2) APTT 31.3 H (22.0-30.0) sec Sodium 136 L (137-145) mmol/L Potassium 4.5 (3.5-5.1) mmol/L Chloride 106 (98-107) mmol/L Carbon Dioxide 21 L (22-30) mmol/L Anion Gap 9 mmol/L BUN 25 H (9-20) mg/dL Creatinine 0.98 (0.66-1.25) mg/dL Est GFR (CKD-EPI)AfAm 83 (>60 ml/min/1.73 sqM) Est GFR (CKD-EPI)NonAf 72 (>60 ml/min/1.73 sqM) Glucose 114 H (74-99) mg/dL Plasma Lactic Acid Tae (0.7-2.0) mmol/L Calcium 8.6 (8.4-10.2) mg/dL Magnesium 2.0 (1.6-2.3) mg/dL Total Bilirubin 1.5 H (0.2-1.3) mg/dL AST 18 (17-59) U/L ALT 13 (4-49) U/L Alkaline Phosphatase 79 (38-126) U/L Creatine Kinase 51 L (55-170) U/L Troponin I (0.000-0.034) ng/mL Total Protein 6.1 L (6.3-8.2) g/dL Albumin 3.6 (3.5-5.0) g/dL TSH 0.625 (0.465-4.680) mIU/L 07/13/23 07/13/23 Range/Units 14:42 14:42 WBC (3.8-10.6) k/uL RBC (4.30-5.90) m/uL Hgb (13.0-17.5) gm/dL Hct (39.0-53.0) % MCV (80.0-100.0) fL MCH (25.0-35.0) pg MCHC (31.0-37.0) g/dL RDW (11.5-15.5) % Plt Count (150-450) k/uL MPV Neutrophils % % Lymphocytes % % Monocytes % % Eosinophils % % Basophils % % Neutrophils # (1.3-7.7) k/uL Lymphocytes # (1.0-4.8) k/uL Monocytes # (0-1.0) k/uL Eosinophils # (0-0.7) k/uL Basophils # (0-0.2) k/uL Macrocytosis PT (9.0-12.0) sec INR (<1.2) APTT (22.0-30.0) sec Sodium (137-145) mmol/L Potassium (3.5-5.1) mmol/L Chloride (98-107) mmol/L Carbon Dioxide (22-30) mmol/L Anion Gap mmol/L BUN (9-20) mg/dL Creatinine (0.66-1.25) mg/dL Est GFR (CKD-EPI)AfAm (>60 ml/min/1.73 sqM) Est GFR (CKD-EPI)NonAf (>60 ml/min/1.73 sqM) Glucose (74-99) mg/dL Plasma Lactic Acid Tae 1.5 (0.7-2.0) mmol/L Calcium (8.4-10.2) mg/dL Magnesium (1.6-2.3) mg/dL Total Bilirubin (0.2-1.3) mg/dL AST (17-59) U/L ALT (4-49) U/L Alkaline Phosphatase (38-126) U/L Creatine Kinase (55-170) U/L Troponin I 0.096 H* (0.000-0.034) ng/mL Total Protein (6.3-8.2) g/dL Albumin (3.5-5.0) g/dL TSH (0.465-4.680) mIU/L - Radiology Data Interpreted by me: X-ray no acute changes seen at this time with a chest this is interpreted by me Critical Care Time Critical Care Time: Yes Total Critical Care Time: 39 Disposition Clinical Impression: Rapid atrial fibrillation, Elevated troponin, Hypotensive episode, Dehydration Disposition: ADMITTED IP TO THIS HOSP Condition: Fair Referrals: Arnold Fabian DO [Primary Care Provider] - 1-2 days Decision Date: 07/13/23 Decision Time: 19:00
[2023-07-13] MEDS ORDERED: DILTIAZEM DRIP BOLUS FROM BAG 1 MG SOLN IV ONE (14:47)
[2023-07-13 14:58] LABS: Basophils % (A) 0 %; Eosinophils # (A) 0.1 k/uL (0-0.7); Eosinophils % (A) 2 %; HCT 41.5 % (39.0-53.0); HGB 14.4 gm/dL (13.0-17.5); Lymphocytes # (A) 1.5 k/uL (1.0-4.8); Lymphocytes % (A) 17 %; MCHC 34.7 g/dL (31.0-37.0); MCV 103.7 fL (80.0-100.0); Macrocytosis Slight; Mean Platelet Volume 7.5; Monocytes # (A) 0.3 k/uL (0-1.0); Monocytes % (A) 4 %; Neutrophils # (A) 6.4 k/uL (1.3-7.7); Neutrophils % (A) 77 %; Platelet Count 175 k/uL (150-450); RDW 12.2 % (11.5-15.5); WBC 8.4 k/uL (3.8-10.6)
[2023-07-13] MEDS ORDERED: DILTIAZEM 125 MG in SODIUM CHLORIDE 0.9% 100 ML IV SCH (15:00)
[2023-07-13 15:03] LABS: INR 1.4 (<1.2); Prothrombin Time 14.1 sec (9.0-12.0)
[2023-07-13 15:14] LABS: ALT 13 U/L (4-49); AST 18 U/L (17-59); African American GFR (CKD) 83 (>60 ml/min/1.73 sqM); Albumin 3.6 g/dL (3.5-5.0); Alkaline Phosphatase 79 U/L (38-126); Anion Gap 9 mmol/L; Blood Urea Nitrogen 25 mg/dL (9-20); Calcium 8.6 mg/dL (8.4-10.2); Carbon Dioxide 21 mmol/L (22-30); Chloride 106 mmol/L (98-107); Creatine Kinase 51 U/L (55-170); Glucose 114 mg/dL (74-99); Non-African American GFR(CKD) 72 (>60 ml/min/1.73 sqM); Potassium 4.5 mmol/L (3.5-5.1); Sodium 136 mmol/L (137-145); Total Bilirubin 1.5 mg/dL (0.2-1.3); Total Protein 6.1 g/dL (6.3-8.2)
--- NOTE | 2023-07-13 15:28 | XR ---
EXAMINATION TYPE: XR chest 1V portable DATE OF EXAM: 07/13/2023 HISTORY: Shortness of breath. COMPARISON: 11/02/2016 TECHNIQUE: Single view of the chest is submitted. FINDINGS: Demonstrated are scattered senescent parenchymal change. Hyperinflation is compatible with COPD. There is no evidence for focal infiltrate. The heart is stable. Hilar and mediastinal structures are within normal limits. Degenerative changes are seen of the dorsal spine. IMPRESSION: 1. Chronic changes without evidence for acute pulmonary disease.
[2023-07-13] MEDS ORDERED: ASPIRIN 325 MG TAB PO STA (18:22)
[2023-07-13] MEDS ORDERED: ACETAMINOPHEN TAB 325 MG TAB PO PRN (18:22)
[2023-07-13] MEDS ORDERED: NALOXONE 0.4 MG/ML 1 ML VIAL IVP PRN (18:22)
[2023-07-13] MEDS ORDERED: HEPARIN SODIUM 1,000 UN/ML (10ML VL) IV ONE (18:22)
[2023-07-13] MEDS ORDERED: ASPIRIN 81 MG PO STA (18:22)
[2023-07-13] MEDS ORDERED: NITROGLYCERIN SL TABS 0.4 MG TAB SUBLINGUAL PRN (18:22)
[2023-07-13] MEDS ORDERED: HEPARIN SODIUM 1,000 UN/ML (10ML VL) IV PRN (18:22)
[2023-07-13] MEDS ORDERED: NITROGLYCERIN OINT 1 INCH/GM PACKET TOPICAL STA (18:22)
[2023-07-13] MEDS ORDERED: HEPARIN SOD,PORK IN 0.45% NACL 25,000 UNIT in 0.45% NACL 1 250ML.BAG IV SCH (18:30)
[2023-07-13 18:42] LABS: Partial Thromboplastin Time 31.3 sec (22.0-30.0)
--- NOTE | 2023-07-13 18:51 | P.HPIM ---
History of Present Illness H&P Date: 07/13/23 Chief Complaint: chest pressure, presyncope 82-year-old man with medical history paroxysmal atrial fibrillation, hypertension, BPH who presented for evaluation presyncope, chest pressure. Patient says that he had a syncopal episode approximately 1 week ago but didn't come into the hospital after his found down by his . Subsequently he noticed that he had presyncope in the last day as well as significant fatigue. During this episode he also noticed a gas-like pain in his right chest and epigastrium. At the time, he tried to sit down and rest which did help his p ain, he also tried Maalox which provided some relief. Overconcern, his called 911 and patient was brought into the hospital by ambulance. In route, he started to experience more of this gas-like chest pain. He was noted to be in atrial fibrillation with RVR. He denies fevers, chills, nausea, vomiting, abdominal pain, constipation, diarrhea, dysuria, dyschezia, numbness/weakness of extremities. In the emergency room, patient was afebrile, 98/81, heart rate 146, 99% on room air. CBC was unremarkable. Basic metabolic panel showed sodium of 136, CO2 21, BUN of 25. Liver function test showed total bilirubin of 1.5, total protein 6.1. TSH was 0.65. Lactic acid is 1.5. Troponins 0.096. INR is 1.4. EKG demonstrated atrial fibrillation with RVR, left bundle-branch block which is new compared to his prior EKG on file which is from 2013. Chest x-ray showed clear parenchymal bilaterally, normal sized heart. Case is discussed with the emergency room provider and decision was made to admit the patient to hospital for further evaluation of atrial fibrillation with RVR. All Systems reviewed and pertinent positives and negatives noted in HPI, all other symptoms are negative Gen: in no apparent distress, resting comfortably in bed Eyes: PERRL, no scleral injection or icterus HENT: normocephalic, atraumatic, good hearing acuity, moist mucous membranes Neck: no tracheal deviation, full range of motion Resp: good air exchange, breathing comfortably with no accessory muscle use, no tactile fremitus, clear to auscultation bilaterally CVS: good distal perfusion x 4, no pitting edema, irregular rhythm, tachycardic GI: soft, NTTP, ND, no hepatosplenomegaly : no suprapubic tenderness, no CVAT, belle catheter not present MSK: no clubbing, no cyanosis, no noted contractures of extremities Skin: no noted rashes, petechiae; temperature of skin is appropriate Neuro: moving all extremities without signs of weakness, CN II-XII intact Psych: cooperative, euthymic mood, insight and judgment intact Labs and imaging as above Assessment: Chest pressure Paroxysmal atrial fibrillation with RVR -Care was escalated to inpatient status -Troponins should be trended -Nitro when necessary -Cardiology consult -Heparin drip initiated, follow PTT for toxicity, hold patient's home Xarelto -Aspirin loaded, started on daily aspirin -Plavix daily -Diltiazem drip, monitor on telemetry -Echocardiogram ordered Hypertension BPH -Home medications reviewed and reconciled Patient is full code Past Medical History Past Medical History: GERD/Reflux, Hypertension, Myocardial Infarction (NM), Osteoarthritis (OA) Additional Past Medical History / Comment(s): LOW IN VITAMIN D3 Last Myocardial Infarction Date:: UNKNOWN DATE - SHOW ON TESTS History of Any Multi-Drug Resistant Organisms: None Reported Past Surgical History: Hernia Repair, Joint Replacement Additional Past Surgical History / Comment(s): right ankle, TOTAL RIGHT KNEE, TOTAL LEFT KNEE REPLACEMENT Past Anesthesia/Blood Transfusion Reactions: No Reported Reaction Past Psychological History: No Psychological Hx Reported Smoking Status: Former smoker Past Alcohol Use History: Occasional Past Drug Use History: None Reported - Past Family History Mother Family Medical History: Hypertension Additional Family Medical History / Comment(s): MOTHER WITH DEMENTIA Father Family Medical History: Cancer Additional Family Medical History / Comment(s): FATHER HAD PROSTATE CANCER Brother(s) Family Medical History: Cancer Medications and Allergies Home Medications Medication Instructions Recorded Confirmed Type Tamsulosin HCl [Flomax] 0.8 mg PO HS 11/17/15 07/13/23 History Finasteride [Proscar] 5 mg PO DAILY 10/24/18 07/13/23 History Rivaroxaban [Xarelto] 20 mg PO DAILY 10/24/18 07/13/23 History oxyCODONE-APAP 10-325MG [Percocet 1 tab PO Q4H PRN 10/24/18 07/13/23 History 10-325 mg] amLODIPine [Norvasc] 5 mg PO DAILY 07/13/23 07/13/23 History Allergies Allergy/AdvReac Type Severity Reaction Status Date / Time No Known Allergies Allergy Verified 03/25/20 11:01 Physical Exam Osteopathic Statement: *. No significant issues noted on an osteopathic structural exam other than those noted in the History and Physical/Consult. Vitals: Vital Signs Temp Pulse Resp BP Pulse Ox 07/13/23 17:52 89 18 111/83 97 07/13/23 17:43 101 H 18 103/74 96 07/13/23 16:33 132 H 16 110/88 07/13/23 16:12 128 H 18 116/68 96 07/13/23 15:00 146 H 18 98/81 99 07/13/23 14:42 128 H 18 94/67 97 07/13/23 13:56 98.2 F 65 20 94/65 99 Intake and Output 07/13/23 07/13/23 07/13/23 06:59 14:59 22:59 Other: Weight 63.503 kg Results CBC & Chem 7: 07/13/23 14:42 07/13/23 09:00 Labs: Abnormal Lab Results - Last 24 Hours (Table) 07/13/23 07/13/23 07/13/23 Range/Units 09:00 14:42 14:42 RBC 4.00 L (4.30-5.90) m/uL MCV 103.7 H (80.0-100.0) fL MCH 36.0 H (25.0-35.0) pg PT 14.1 H (9.0-12.0) sec INR 1.4 H (<1.2) APTT 31.3 H (22.0-30.0) sec Sodium 136 L (137-145) mmol/L Carbon Dioxide 21 L (22-30) mmol/L BUN 25 H (9-20) mg/dL Glucose 114 H (74-99) mg/dL Total Bilirubin 1.5 H (0.2-1.3) mg/dL Creatine Kinase 51 L (55-170) U/L Troponin I (0.000-0.034) ng/mL Total Protein 6.1 L (6.3-8.2) g/dL 07/13/23 Range/Units 14:42 RBC (4.30-5.90) m/uL MCV (80.0-100.0) fL MCH (25.0-35.0) pg PT (9.0-12.0) sec INR (<1.2) APTT (22.0-30.0) sec Sodium (137-145) mmol/L Carbon Dioxide (22-30) mmol/L BUN (9-20) mg/dL Glucose (74-99) mg/dL Total Bilirubin (0.2-1.3) mg/dL Creatine Kinase (55-170) U/L Troponin I 0.096 H* (0.000-0.034) ng/mL Total Protein (6.3-8.2) g/dL
[2023-07-13 19:41] LABS: Amorphous Sediment,Urine Rare /hpf; Appearance,Urine Clear (Clear); Bilirubin,Urine Negative (Negative); Blood,Urine Negative (Negative); Color,Urine Light Yellow; Glucose,Urine (UA) Negative (Negative); Hyphae Yeast, Urine Rare /hpf; Ketones,Urine Trace (Negative); Leukocyte Esterase,Urine Large (Negative); Mucus,Urine Rare /hpf; Nitrite,Urine Positive (Negative); Protein,Urine Negative (Negative); RBC,Urine 3 /hpf (0-5); Specific Gravity,Urine 1.011 (1.001-1.035); Urobilinogen,Urine <2.0 mg/dL (<2.0); WBC,Urine 33 /hpf (0-5)
[2023-07-13 20:59] LABS: Basophils % (A) 0 %; Eosinophils # (A) 0.2 k/uL (0-0.7); Eosinophils % (A) 3 %; HCT 39.3 % (39.0-53.0); HGB 13.3 gm/dL (13.0-17.5); Lymphocytes # (A) 2.4 k/uL (1.0-4.8); Lymphocytes % (A) 31 %; MCH 35.5 pg (25.0-35.0); MCHC 33.9 g/dL (31.0-37.0); MCV 104.8 fL (80.0-100.0); Macrocytosis Slight; Mean Platelet Volume 7.8; Monocytes # (A) 0.2 k/uL (0-1.0); Monocytes % (A) 3 %; Neutrophils # (A) 4.6 k/uL (1.3-7.7); Neutrophils % (A) 61 %; Platelet Count 169 k/uL (150-450); RBC 3.75 m/uL (4.30-5.90); RDW 12.2 % (11.5-15.5); WBC 7.5 k/uL (3.8-10.6)
[2023-07-13] MEDS ORDERED: METOPROLOL TARTRATE 25 MG TAB PO SCH (21:00)
[2023-07-13] MEDS: TAMSULOSIN 0.4 MG CAP.ER.24H PO SCH (22:35)
[2023-07-14 04:20] LABS: INR 1.2 (<1.2); Partial Thromboplastin Time 34.9 sec (22.0-30.0); Prothrombin Time 12.1 sec (9.0-12.0)
[2023-07-14 07:47] LABS: INR 1.1 (<1.2); Prothrombin Time 11.9 sec (9.0-12.0)
[2023-07-14 08:17] LABS: Basophils % (A) 1 %; Eosinophils # (A) 0.1 k/uL (0-0.7); Eosinophils % (A) 2 %; HCT 40.5 % (39.0-53.0); HGB 13.2 gm/dL (13.0-17.5); Lymphocytes # (A) 1.8 k/uL (1.0-4.8); Lymphocytes % (A) 31 %; MCH 34.4 pg (25.0-35.0); MCHC 32.7 g/dL (31.0-37.0); MCV 105.3 fL (80.0-100.0); Macrocytosis Slight; Mean Platelet Volume 8.5; Monocytes # (A) 0.3 k/uL (0-1.0); Monocytes % (A) 4 %; Neutrophils # (A) 3.5 k/uL (1.3-7.7); Neutrophils % (A) 60 %; Platelet Count 149 k/uL (150-450); RBC 3.85 m/uL (4.30-5.90); RDW 12.7 % (11.5-15.5); WBC 5.9 k/uL (3.8-10.6)
[2023-07-14 08:19] LABS: African American GFR (CKD) >90 (>60 ml/min/1.73 sqM); Anion Gap 5 mmol/L; Blood Urea Nitrogen 20 mg/dL (9-20); Calcium 8.7 mg/dL (8.4-10.2); Carbon Dioxide 26 mmol/L (22-30); Chloride 106 mmol/L (98-107); Glucose 94 mg/dL (74-99); Non-African American GFR(CKD) 79 (>60 ml/min/1.73 sqM); Potassium 4.7 mmol/L (3.5-5.1); Sodium 137 mmol/L (137-145)
[2023-07-14] MEDS: METOPROLOL TARTRATE 50 MG TAB PO SCH ×2 (08:31→20:04)
[2023-07-14] MEDS: FINASTERIDE 5 MG TAB PO SCH (08:31)
[2023-07-14] MEDS ORDERED: amLODIPine 5 MG TAB PO SCH (09:00)
[2023-07-14] MEDS ORDERED: ASPIRIN 81 MG PO SCH (09:00)
--- NOTE | 2023-07-14 10:15 | P.CRDCN ---
History of Present Illness History of present illness: HISTORY OF PRESENT ILLNESS: This is a 82 year old male with a past medical history significant for paroxysmal atrial fibrillation, hypertension, mild coronary artery disease, ascending aortic aneurysm, and mild aortic regurgitation. Patient follows in the office with Dr. Solano. We have been asked to see the patient in consultation for afib with RVR. Patient examined at the bedside. Patient states approximately one week ago he was walking in his bedroom when he had a syncopal episode. He states that his found him on the floor. He states initially thought he just got up too quickly. He denied having any symptoms such as chest pain or pressure. He denied any shortness of breath. He denied any dizziness or lightheadedness. Patient was found to be in A. fib with RVR upon arrival to the hospital. Patient was started on IV heparin and IV Cardizem. Telemetry this morning reveals atrial fibrillation with controlled ventricular rate. Blood pressure 136/79. Patient was hypotensive on arrival with a blood pressure in the 90s per he states at home when he checked his blood pressure the systolic was ranging between 6070. * EKG reveals atrial fibrillation with RVR. Left bundle branch block. * Chest xray chronic changes without evidence for acute pulmonary process * Laboratory data: W BC 5.9. Hemoglobin 13.2. Platelet count 149. Sodium 137. Potassium 4.7. BUN 20. Creatinine 0.89. Troponin 0.096. 0.198. 0.166. TSH 0.643. * Current home cardiac medications include Xarelto 20 mg daily and amlodipine 5 mg daily * Most recent echocardiogram obtained in January 2023 revealed ejection fraction 50-55%, mild aortic regurgitation, moderate MR, mild TR * Patient underwent Dayna scan stress test in December 2022 revealing normal myocardial perfusion and function with fixed inferior wall defect. REVIEW OF SYSTEMS: At the time of my exam: CONSTITUTIONAL: Denies fever or chills. HEENT: Denies blurred vision, vision changes, or eye pain. Denies hemoptysis CARDIOVASCULAR: Denies chest pain. Denies orthopnea. Denies PND. Denies palpitations RESPIRATORY: Denies shortness of breath. GASTROINTESTINAL: Denies abdominal pain. Denies nausea or vomiting. HEMATOLOGIC: Denies bleeding disorders. GENITOURINARY: Denies any blood in urine. SKIN: Denies pruitis. Denies rash. PHYSICAL EXAM: VITAL SIGNS: Reviewed. GENERAL: Well-developed in no acute distress. HEENT: Head is normocephalic. Pupils are equal, round. Sclerae anicteric. Mucous membranes of the mouth are moist. Neck supple. No JVD or thyromegaly LUNGS: Respirations even and unlabored. Lungs essentially clear to auscultation bilaterally. HEART: Irregular rate and rhythm. S1 and S2 heard. Systolic murmur noted ABDOMEN: Soft. Nondistended. Nontender. EXTREMITIES: Normal range of motion. No clubbing or cyanosis. Peripheral p ulses intact. No lower extremity edema NEUROLOGIC: Awake and alert. Oriented x 3. ASSESSMENT: Syncope, likely secondary to hypotension, cannot rule out conversion pauses as differential etiology Hypotension Paroxysmal atrial fibrillation with RVR Elevated troponins, likely secondary to A. fib with RVR and hypotension, no evidence of acute coronary syndrome Hypertension Mild coronary artery disease History of ascending aortic aneurysm Valvular heart disease including mild AR, moderate MR, mild TR PLAN: Obtain 2-D echo to assess cardiac structure and function Discontinue IV Cardizem Resume Xarelto. His continue IV heparin after Xarelto has been given. Begin metoprolol 50 mg twice a day for optimal heart rate control Discontinue amlodipine secondary to hypotension Continue telemetry monitoring Continue to monitor blood pressure Further recommendations pending patient's course Nurse practitioner note has been reviewed by physician. Signing provider agrees with the documented findings, assessment, and plan of care. Past Medical History Past Medical History: GERD/Reflux, Hypertension, Myocardial Infarction ([place]), Osteoarthritis ([place]) Additional Past Medical History / Comment(s): LOW IN VITAMIN D3 Last Myocardial Infarction Date:: UNKNOWN DATE - SHOW ON TESTS History of Any Multi-Drug Resistant Organisms: None Reported Past Surgical History: Hernia Repair, Joint Replacement Additional Past Surgical History / Comment(s): right ankle, TOTAL RIGHT KNEE, TOTAL LEFT KNEE REPLACEMENT Past Anesthesia/Blood Transfusion Reactions: No Reported Reaction Past Psychological History: No Psychological Hx Reported Smoking Status: Former smoker Past Alcohol Use History: Rare Additional Past Alcohol Use History / Comment(s): STARTED SMOKING AT AGE 15 QUIT 1 MONTH AGO Past Drug Use History: None Reported - Past Family History Mother Family Medical History: Hypertension Additional Family Medical History / Comment(s): MOTHER WITH DEMENTIA Father Family Medical History: Cancer Additional Family Medical History / Comment(s): FATHER HAD PROSTATE CANCER Brother(s) Family Medical History: Cancer Medications and Allergies Home Medications Medication Instructions Recorded Confirmed Type Tamsulosin HCl [Flomax] 0.8 mg PO HS 11/17/15 07/13/23 History Finasteride [Proscar] 5 mg PO DAILY 10/24/18 07/13/23 History Rivaroxaban [Xarelto] 20 mg PO DAILY 10/24/18 07/13/23 History oxyCODONE-APAP 10-325MG [Percocet 1 tab PO Q4H PRN 10/24/18 07/13/23 History 10-325 mg] amLODIPine [Norvasc] 5 mg PO DAILY 07/13/23 07/13/23 History Allergies Allergy/AdvReac Type Severity Reaction Status Date / Time No Known Allergies Allergy Verified 03/25/20 11:01 Physical Exam Vitals: Vital Signs Temp Pulse Pulse Resp BP BP Pulse Ox 07/14/23 04:07 98.0 F 81 19 95/64 95 07/14/23 00:00 98.0 F 65 19 110/76 95 07/13/23 21:30 98.0 F 71 19 125/73 95 07/13/23 20:50 76 16 113/93 96 07/13/23 20:00 91 16 100/67 96 07/13/23 19:43 96 18 92/61 95 07/13/23 18:50 151 H 18 117/86 96 07/13/23 17:52 89 18 111/83 97 07/13/23 17:43 101 H 18 103/74 96 07/13/23 16:33 132 H 16 110/88 07/13/23 16:12 128 H 18 116/68 96 07/13/23 15:00 146 H 18 98/81 99 07/13/23 14:42 128 H 18 94/67 97 07/13/23 13:56 98.2 F 65 20 94/65 99 Intake and Output 07/13/23 07/14/23 07/14/23 22:59 06:59 14:59 Intake Total 20.447 34.195 Output Total 1000 Balance 20.447 -965.805 Intake: Intake, IV Titration 20.447 34.195 Amount Heparin Sod,Pork in 0.45% 20.447 34.195 NaCl 25,000 unit In 0.45 % NaCl 1 250ml.bag @ 12 UNITS/KG/HR 7.62 mls/hr IV .Q24H [facility] Rx#: [id number] Output: Urine 1000 Other: Voiding Method Toilet Urinal Weight 63.503 kg Results 07/14/23 06:50 07/14/23 06:50 Cardiac Enzymes 07/13/23 07/13/23 07/13/23 Range/Units 09:00 14:42 20:44 AST 18 (17-59) U/L Troponin I 0.096 H* 0.198 H* (0.000-0.034) ng/mL 07/14/23 Range/Units 03:06 AST (17-59) U/L Troponin I 0.166 H* (0.000-0.034) ng/mL Coagulation 07/13/23 07/13/23 07/14/23 Range/Units 14:42 20:44 03:06 PT 14.1 H 12.1 H (9.0-12.0) sec APTT 31.3 H 107.4 H* 34.9 H (22.0-30.0) sec 07/14/23 Range/Units 06:50 PT 11.9 (9.0-12.0) sec APTT (22.0-30.0) sec CBC 07/13/23 07/13/23 Range/Units 14:42 20:44 WBC 8.4 7.5 (3.8-10.6) k/uL RBC 4.00 L 3.75 L (4.30-5.90) m/uL Hgb 14.4 13.3 (13.0-17.5) gm/dL Hct 41.5 39.3 (39.0-53.0) % Plt Count 175 169 (150-450) k/uL Comprehensive Metabolic Panel 07/13/23 Range/Units 09:00 Sodium 136 L (137-145) mmol/L Potassium 4.5 (3.5-5.1) mmol/L Chloride 106 (98-107) mmol/L Carbon Dioxide 21 L (22-30) mmol/L BUN 25 H (9-20) mg/dL Creatinine 0.98 (0.66-1.25) mg/dL Glucose 114 H (74-99) mg/dL Calcium 8.6 (8.4-10.2) mg/dL AST 18 (17-59) U/L ALT 13 (4-49) U/L Alkaline Phosphatase 79 (38-126) U/L Total Protein 6.1 L (6.3-8.2) g/dL Albumin 3.6 (3.5-5.0) g/dL Current Medications Generic Name Dose Route Start Last Admin Trade Name Freq PRN Reason Stop Dose Admin Acetaminophen 650 mg 07/13/23 18:22 Acetaminophen Tab 325 Mg Tab PO Q6HR PRN Mild Pain or Fever > 100.5 Aspirin 81 mg 07/14/23 09:00 Aspirin 81 Mg PO DAILY [facility] Finasteride 5 mg 07/14/23 09:00 Finasteride 5 Mg Tab PO DAILY [facility] Heparin Sodium (Porcine) 0 unit 07/13/23 18:22 Heparin Sodium 1,000 Un/Ml (10ml Vl) IV PER PROTOCOL PRN Low PTT Protocol Heparin Sodium/Sodium Chloride 250 mls @ 7.62 mls/hr 07/13/23 18:30 07/14/23 04:34 25,000 unit/ Sodium Chloride IV 12 units/kg/hr .Q24H KP 7.62 mls/hr Titration Protocol 12 UNITS/KG/HR Metoprolol Tartrate 50 mg 07/14/23 09:00 Metoprolol Tartrate 25 Mg Tab PO BID [facility] Naloxone HCl 0.2 mg 07/13/23 18:22 Naloxone 0.4 Mg/Ml 1 Ml Vial IVP Q2M PRN Opioid Reversal Nitroglycerin 0.4 mg 07/13/23 18:22 Nitroglycerin Sl Tabs 0.4 Mg Tab SUBLINGUAL Q5M PRN Chest Pain Tamsulosin HCl 0.8 mg 07/13/23 21:00 07/13/23 22:35 Tamsulosin 0.4 Mg Cap.Er.24h PO 0.8 mg HS [facility] Administration Intake and Output 07/13/23 07/14/23 07/14/23 22:59 06:59 14:59 Intake Total 20.447 34.195 Output Total 1000 Balance 20.447 -965.805 Intake: Intake, IV Titration 20.447 34.195 Amount Heparin Sod,Pork in 0.45% 20.447 34.195 NaCl 25,000 unit In 0.45 % NaCl 1 250ml.bag @ 12 UNITS/KG/HR 7.62 mls/hr IV .Q24H [facility] Rx#: [id number] Output: Urine 1000 Other: Voiding Method Toilet Urinal Weight 63.503 kg 07/13/23 20:44 07/13/23 09:00
--- NOTE | 2023-07-14 10:55 | CA ---
Transthoracic Echo Report Name: Scotty Rojas Age: 82 Gender: M : 1940 Exam Date: 07/14/2023 08:34 Exam Location: [place] [facility] Ht (in): 69 Wt (lb): 140 Ordering Physician: Terrance Che MD Attending/Referring Phys: Eye Surgeon Santy Infante Procedure CPT: Indications: a fib, Cardiac Hx: Technical Quality: Fair Contrast 1: Total Dose (mL): Contrast 2: Total Dose (mL): MEASUREMENTS (Male / Female) Normal Values 2D ECHO LV Diastolic Diameter PLAX 3.8 cm 4.2 - 5.9 / 3.9 - 5.3 cm LV Systolic Diameter PLAX 2.4 cm IVS Diastolic Thickness 1.3 cm 0.6 - 1.0 / 0.6 - 0.9 cm LVPW Diastolic Thickness 1.4 cm 0.6 - 1.0 / 0.6 - 0.9 cm LV Relative Wall Thickness 0.7 RV Internal Dim ED PLAX 3.2 cm LVOT Diameter 2.2 cm Aortic Root Diameter 3.5 cm LA Systolic Diameter LX 2.2 cm 3.0 - 4.0 / 2.7 - 3.8 cm LV Diastolic Volume MOD BP 64.6 cm??? 67 - 155 / 56 - 104 cm??? LV Systolic Volume MOD BP 24.5 cm??? - / 19 - 49 cm??? LV Ejection Fraction MOD BP 62.1 % >= 55 % LV Cardiac Index MOD BP 1672.1 cm???/min???m??? LV Diastolic Volume MOD 4C 64.1 cm??? LV Systolic Volume MOD 4C 28.2 cm??? LV Ejection Fraction MOD 4C 56.1 % LV Cardiac Index MOD 4C 1497.3 cm???/min???m??? LV Diastolic Length 4C 7.3 cm LV Systolic Length 4C 6.5 cm LV Diastolic Volume MOD 2C 63.3 cm??? LV Systolic Volume MOD 2C 19.9 cm??? LV Ejection Fraction MOD 2C 68.6 % LV Cardiac Index MOD 2C 1806.5 cm???/min???m??? LV Diastolic Length 2C 7.1 cm LV Systolic Length 2C 6.0 cm LA Volume 48.6 cm??? - 58 / 22 - 52 cm??? LA Volume Index 27.7 cm???/m??? 16 - 28 cm???/m??? DOPPLER AV Peak Velocity 123.4 cm/s AV Peak Gradient 6.1 mmHg AI Peak Velocity 344.3 cm/s AI Peak Gradient 47.4 mmHg AI Pressure Half Time 873.2 ms LVOT Peak Velocity 99.1 cm/s LVOT Peak Gradient 3.9 mmHg LVOT Velocity Time Integral 14.5 cm LVOT Stroke Volume 53.7 cm??? LVOT Stroke Volume Index 30.3 ml/m??? LVOT Cardiac Index 2237.0 cm???/min???m??? AV Area Cont Eq pk 3.0 cm??? MV Peak Velocity 86.1 cm/s MV Peak Gradient 3.0 mmHg MV Mean Velocity 42.8 cm/s MV Mean Gradient 1.0 mmHg MV Velocity Time Integral 23.4 cm MR Peak Velocity 227.5 cm/s MR Peak Gradient 20.7 mmHg Mitral E Point Velocity 74.0 cm/s Mitral A Point Velocity 30.8 cm/s Mitral E to A Ratio 2.4 MV Deceleration Time 239.1 ms MV E' Velocity 8.9 cm/s Mitral E to MV E' Ratio 8.3 TR Peak Velocity 206.2 cm/s TR Peak Gradient 17.0 mmHg Right Ventricular Systolic Press 22.0 mmHg PV Peak Velocity 75.0 cm/s PV Peak Gradient 2.2 mmHg FINDINGS Left Ventricle Mormal LV size. Mild concentric LVH. Left ventricular ejection fraction is estimated at_55 %. Right Ventricle Normal right ventricular size. RVSP= 23mmHg. Right Atrium Normal right atrial size. Left Atrium Normal left atrial size. LA volume index= 27.3ml/m2 Mitral Valve Structurally normal mitral valve. Mild MR. Aortic Valve AV appears trileaflet with mild sclerosis. AO root nettie= 4.0cm. Mild to moderate AI. Tricuspid Valve Tricuspid valve not well visualized. Mild TR Pulmonic Valve Pulmonic valve not well visualized. No pulmonic regurgitation. Pericardium Normal pericardium. Aorta AO root nettie= 4.0cm CONCLUSIONS Normal LV size and fairly well-preserved systolic function. Aortic valve sclerosis and mild mitral and the calcification. Mild mitral and tricuspid regurgitation mild to moderate aortic insufficiency. No pericardial effusion. No significant pulmonary hypertension Previewed by: Dr. Tej Waller MD (Electronically Signed) Final Date: 14 July 2023 10:54
--- NOTE | 2023-07-14 11:34 | P.PN ---
Subjective Progress Note Date: 07/14/23 No new copmlaints. Pt feels back to normal self, no dyspnea, pain, palps. Gen: in no apparent distress, resting comfortably in bed Eyes: PERRL, no scleral injection or icterus HENT: normocephalic, atraumatic, good hearing acuity, moist mucous membranes Neck: no tracheal deviation, full range of motion Resp: good air exchange, breathing comfortably with no accessory muscle use, no tactile fremitus, clear to auscultation bilaterally CVS: good distal perfusion x 4, no pitting edema, irregular rhythm, tachycardic GI: soft, NTTP, ND, no hepatosplenomegaly : no suprapubic tenderness, no CVAT, belle catheter not present MSK: no clubbing, no cyanosis, no noted contractures of extremities Skin: no noted rashes, petechiae; temperature of skin is appropriate Neuro: moving all extremities without signs of weakness, CN II-XII intact Psych: cooperative, euthymic mood, insight and judgment intact Hospital Course: 82-year-old man with medical history paroxysmal atrial fibrillation, hypertension, BPH who presented for evaluation presyncope, chest pressure. In the emergency room, patient was afebrile, 98/81, heart rate 146, 99% on room air. CBC was unremarkable. Basic metabolic panel showed sodium of 136, CO2 21, BUN of 25. Liver function test showed total bilirubin of 1.5, total protein 6.1. TSH was 0.65. Lactic acid is 1.5. Troponins 0.096. INR is 1.4. EKG demonstrated atrial fibrillation with RVR, left bundle-branch block which is new compared to his prior EKG on file which is from 2013. Chest x-ray showed clear parenchymal bilaterally, normal sized heart. Case is discussed with the emergency room provider and decision was made to admit the patient to hospital for further evaluation of atrial fibrillation with RVR. Assessment: Paroxysmal atrial fibrillation with RVR NSTEMI, type II, secondary to A Fib -Discussed with cardiology, will continue to monitor patient, discontinue dilt, heparin, resume xarelto -Troponins reviewed, downtrended -Nitro when necessary -Heparin drip discontinued, resume patient's home Xarelto -Discontinue aspirin -Echo reviewed, normal EF Hypertension BPH -Home medications reviewed and reconciled Patient is full code Objective - Vital Signs Vital signs: Vital Signs Temp 97.8 F 07/14/23 08:34 Pulse 77 07/14/23 08:34 Resp 18 07/14/23 08:34 BP 136/79 07/14/23 08:34 Pulse Ox 97 07/14/23 08:48 FiO2 Intake & Output 07/13/23 07/14/23 07/14/23 18:59 06:59 18:59 Intake Total 54.642 10 Output Total 1000 Balance -945.358 10 Weight 63.503 kg 63.503 kg Intake: IV 10 Invasive Line 1 10 Intake, IV Titration 54.642 Amount Heparin Sod,Pork in 0.45% 54.642 NaCl 25,000 unit In 0.45 % NaCl 1 250ml.bag @ 12 UNITS/KG/HR 7.62 mls/hr IV .Q24H [facility] Rx#: [id number] Oral 0 Output: Urine 1000 Other: Voiding Method Toilet Toilet Urinal Urinal - Labs CBC & Chem 7: 07/14/23 06:50 07/14/23 06:50 Labs: Abnormal Lab Results - Last 24 Hours (Table) 07/13/23 07/13/23 07/13/23 Range/Units 09:00 14:42 14:42 RBC 4.00 L (4.30-5.90) m/uL MCV 103.7 H (80.0-100.0) fL MCH 36.0 H (25.0-35.0) pg Plt Count (150-450) k/uL PT 14.1 H (9.0-12.0) sec INR 1.4 H (<1.2) APTT 31.3 H (22.0-30.0) sec Sodium 136 L (137-145) mmol/L Carbon Dioxide 21 L (22-30) mmol/L BUN 25 H (9-20) mg/dL Glucose 114 H (74-99) mg/dL Total Bilirubin 1.5 H (0.2-1.3) mg/dL Creatine Kinase 51 L (55-170) U/L Troponin I (0.000-0.034) ng/mL Total Protein 6.1 L (6.3-8.2) g/dL Urine Ketones (Negative) Ur Leukocyte Esterase (Negative) Urine WBC (0-5) /hpf Urine WBC Clumps (None) /hpf Amorphous Sediment (None) /hpf Urine Mucus (None) /hpf 07/13/23 07/13/23 07/13/23 Range/Units 14:42 14:42 20:44 RBC 3.75 L (4.30-5.90) m/uL MCV 104.8 H (80.0-100.0) fL MCH 35.5 H (25.0-35.0) pg Plt Count (150-450) k/uL PT (9.0-12.0) sec INR (<1.2) APTT (22.0-30.0) sec Sodium (137-145) mmol/L Carbon Dioxide (22-30) mmol/L BUN (9-20) mg/dL Glucose (74-99) mg/dL Total Bilirubin (0.2-1.3) mg/dL Creatine Kinase (55-170) U/L Troponin I 0.096 H* (0.000-0.034) ng/mL Total Protein (6.3-8.2) g/dL Urine Ketones Trace H (Negative) Ur Leukocyte Esterase Large H (Negative) Urine WBC 33 H (0-5) /hpf Urine WBC Clumps Rare H (None) /hpf Amorphous Sediment Rare H (None) /hpf Urine Mucus Rare H (None) /hpf 07/13/23 07/13/23 07/14/23 Range/Units 20:44 20:44 03:06 RBC (4.30-5.90) m/uL MCV (80.0-100.0) fL MCH (25.0-35.0) pg Plt Count (150-450) k/uL PT (9.0-12.0) sec INR (<1.2) APTT 107.4 H* (22.0-30.0) sec Sodium (137-145) mmol/L Carbon Dioxide (22-30) mmol/L BUN (9-20) mg/dL Glucose (74-99) mg/dL Total Bilirubin (0.2-1.3) mg/dL Creatine Kinase (55-170) U/L Troponin I 0.198 H* 0.166 H* (0.000-0.034) ng/mL Total Protein (6.3-8.2) g/dL Urine Ketones (Negative) Ur Leukocyte Esterase (Negative) Urine WBC (0-5) /hpf Urine WBC Clumps (None) /hpf Amorphous Sediment (None) /hpf Urine Mucus (None) /hpf 07/14/23 07/14/23 Range/Units 03:06 06:50 RBC 3.85 L (4.30-5.90) m/uL MCV 105.3 H (80.0-100.0) fL MCH (25.0-35.0) pg Plt Count 149 L (150-450) k/uL PT 12.1 H (9.0-12.0) sec INR 1.2 H (<1.2) APTT 34.9 H (22.0-30.0) sec Sodium (137-145) mmol/L Carbon Dioxide (22-30) mmol/L BUN (9-20) mg/dL Glucose (74-99) mg/dL Total Bilirubin (0.2-1.3) mg/dL Creatine Kinase (55-170) U/L Troponin I (0.000-0.034) ng/mL Total Protein (6.3-8.2) g/dL Urine Ketones (Negative) Ur Leukocyte Esterase (Negative) Urine WBC (0-5) /hpf Urine WBC Clumps (None) /hpf Amorphous Sediment (None) /hpf Urine Mucus (None) /hpf
[2023-07-14] MEDS ORDERED: RIVAROXABAN 20 MG TAB PO SCH (17:30)
[2023-07-14 17:47] LABS: Chol/HDL Ratio 2.46 Ratio; LDL Cholesterol,Calculated 67.8 mg/dL (0.0-131.0)
[2023-07-14] MEDS: TAMSULOSIN 0.4 MG CAP.ER.24H PO SCH (20:04)
[2023-07-15] MEDS: FINASTERIDE 5 MG TAB PO SCH (08:37)
[2023-07-15] MEDS: METOPROLOL TARTRATE 50 MG TAB PO SCH (08:37)
[2023-07-15 08:38] VITALS: BP 102/66; PULSE 99; RESP 18; TEMP 97.6
--- NOTE | 2023-07-15 09:56 | P.PN ---
Subjective HISTORY OF PRESENT ILLNESS: This is a 82 year old male with a past medical history significant for paroxysmal atrial fibrillation, hypertension, mild coronary artery disease, ascending aortic aneurysm, and mild aortic regurgitation. Patient follows in the office with Dr. Solano. We have been asked to see the patient in consultation for afib with RVR. Patient examined at the bedside. Patient states approximately one week ago he was walking in his bedroom when he had a syncopal episode. He states that his found him on the floor. He states initially thought he just got up too quickly. He denied having any symptoms such as chest pain or pressure. He denied any shortness of breath. He denied any dizziness or l ightheadedness. Patient was found to be in A. fib with RVR upon arrival to the hospital. Patient was started on IV heparin and IV Cardizem. Telemetry this morning reveals atrial fibrillation with controlled ventricular rate. Blood pressure 136/79. Patient was hypotensive on arrival with a blood pressure in the 90s per he states at home when he checked his blood pressure the systolic was ranging between 6070. * EKG reveals atrial fibrillation with RVR. Left bundle branch block. * Chest xray chronic changes without evidence for acute pulmonary process * Laboratory data: W BC 5.9. Hemoglobin 13.2. Platelet count 149. Sodium 137. Potassium 4.7. BUN 20. Creatinine 0.89. Troponin 0.096. 0.198. 0.166. TSH 0.643. * Current home cardiac medications include Xarelto 20 mg daily and amlodipine 5 mg daily * Most recent echocardiogram obtained in January 2023 revealed ejection fraction 50-55%, mild aortic regurgitation, moderate MR, mild TR * Patient underwent Dayna scan stress test in December 2022 revealing normal myocardial perfusion and function with fixed inferior wall defect. 07/15/2023 Patient examined this morning. He is sitting up on the side of the bed. Pat ient denies chest pain or pressure. He denies shortness of breath. Telemetry reveals atrial fibrillation with controlled ventricular rate in the 80s. He has been resumed on his Xarelto. Patient's blood pressure has improved. He denies any dizziness or lightheadedness. Echocardiogram completed revealing ejection fraction 55% PHYSICAL EXAM: VITAL SIGNS: Reviewed. GENERAL: Well-developed in no acute distress. HEENT: Head is normocephalic. Pupils are equal, round. Sclerae anicteric. Mucous membranes of the mouth are moist. Neck supple. No JVD or thyromegaly LUNGS: Respirations even and unlabored. Lungs essentially clear to auscultation bilaterally. HEART: Irregular rate and rhythm. S1 and S2 heard. Systolic murmur noted ABDOMEN: Soft. Nondistended. Nontender. EXTREMITIES: Normal range of motion. No clubbing or cyanosis. Peripheral pulses intact. No lower extremity edema NEUROLOGIC: Awake and alert. Oriented x 3. ASSESSMENT: Syncope, likely secondary to hypotension, cannot rule out conversion pauses as differential etiology Hypotension, resolved Paroxysmal atrial fibrillation with RVR Elevated troponins, likely secondary to A. fib with RVR and hypotension, no evidence of acute coronary syndrome Hypertension Mild coronary artery disease History of ascending aortic aneurysm Valvular heart disease including mild AR, moderate MR, mild TR PLAN: Continue current cardiac medications Continue to hold Norvasc at discharge Patient is stable for discharge home today from a cardiac standpoint He is to follow up post discharge in the office Nurse practitioner note has been reviewed by physician. Signing provider agrees with the documented findings, assessment, and plan of care. Objective - Vital Signs Vital signs: Vital Signs Temp 97.6 F 07/15/23 08:00 Pulse 99 07/15/23 08:00 Resp 18 07/15/23 08:00 BP 102/66 07/15/23 08:00 Pulse Ox 97 07/15/23 08:00 FiO2 Intake & Output 07/14/23 07/15/23 07/15/23 18:59 06:59 18:59 Intake Total 440 260 120 Output Total 300 Balance 440 -40 120 Intake: IV 20 20 Invasive Line 1 20 20 Oral 420 240 120 Output: Urine 300 Other: Voiding Method Toilet Toilet Toilet Urinal Urinal Urinal # Voids 2 1 - Labs CBC & Chem 7: 07/14/23 06:50 07/14/23 06:50
--- NOTE | 2023-07-15 11:45 | P.DS ---
Providers Date of admission: 07/14/23 12:39 Expected date of discharge: 07/15/23 Attending physician: Terrance Che MD Consults: 07/13/23 18:22 Consult Physician Routine Consulting Provider: [facility] Consult Reason/Comments: Chest Pain, atrial fibrillation with new LBBB Do you want consulting provider notified?: Yes Primary care physician: Arnold Waterman [facility] Course: Paroxysmal atrial fibrillation with RVR NSTEMI, type II, secondary to A Fib Hypertension BPH Hospital Course: 82-year-old man with medical history paroxysmal atrial fibrillation, hyp ertension, BPH who presented for evaluation presyncope, chest pressure. In the emergency room, patient was afebrile, 98/81, heart rate 146, 99% on room air. CBC was unremarkable. Basic metabolic panel showed sodium of 136, CO2 21, BUN of 25. Liver function test showed total bilirubin of 1.5, total protein 6.1. TSH was 0.65. Lactic acid is 1.5. Troponins 0.096. INR is 1.4. EKG demonstrated atrial fibrillation with RVR, left bundle-branch block which is new compared to his prior EKG on file which is from 2013. Chest x-ray showed clear parenchymal bilaterally, normal sized heart. Case is discussed with the emergency room provider and decision was made to admit the patient to hospital for further evaluation of atrial fibrillation with RVR. Seen and evaluated by cardiology, who increased patient's metoprolol to 50mg BID and weaned the cardizem gtt. Pts troponins did downtrend and no LHC was necessary due to attribution to type II NSTEMI. Echo completed which showed EF 55, no WMA, RVSP 23. Pt was discharged home with rate control and resumption of xarelto. He will f/u cardiology and PCP. I spent 34 minutes coordinating this discharge on 07/15 Gen: in no apparent distress, resting comfortably in bed Eyes: PERRL, no scleral injection or icterus HENT: normocephalic, atraumatic, good hearing acuity, moist mucous membranes Neck: no tracheal deviation, full range of motion Resp: good air exchange, breathing comfortably with no accessory muscle use, no tactile fremitus, clear to auscultation bilaterally CVS: good distal perfusion x 4, no pitting edema, irregular rhythm, tachycardic GI: soft, NTTP, ND, no hepatosplenomegaly : no suprapubic tenderness, no CVAT, belle catheter not present MSK: no clubbing, no cyanosis, no noted contractures of extremities Skin: no noted rashes, petechiae; temperature of skin is appropriate Neuro: moving all extremities without signs of weakness, CN II-XII intact Psych: cooperative, euthymic mood, insight and judgment intact Patient Condition at Discharge: Good Plan - Discharge Summary Discharge Rx Participant: Yes New Discharge Prescriptions: New Metoprolol Tartrate [Lopressor] 50 mg PO BID #60 tab Continue Tamsulosin HCl [Flomax] 0.8 mg PO HS oxyCODONE-APAP 10-325MG [Percocet 10-325 mg] 1 tab PO Q4H PRN PRN Reason: Pain Finasteride [Proscar] 5 mg PO DAILY Rivaroxaban [Xarelto] 20 mg PO DAILY Discontinued amLODIPine [Norvasc] 5 mg PO DAILY Discharge Medication List Tamsulosin HCl [Flomax] 0.8 mg PO HS 11/17/15 [History] Finasteride [Proscar] 5 mg PO DAILY 10/24/18 [History] Rivaroxaban [Xarelto] 20 mg PO DAILY 10/24/18 [History] oxyCODONE-APAP 10-325MG [Percocet 10-325 mg] 1 tab PO Q4H PRN 10/24/18 [History] Metoprolol Tartrate [Lopressor] 50 mg PO BID #60 tab 07/15/23 [Rx] Follow up Appointment(s)/Referral(s): Jamil Stokes MD [STAFF PHYSICIAN] - 1 Week (please call the office on a business day for appt) Arnold Fabian DO [Primary Care Provider] - 1-2 days (please call the office on normal day for appt) Patient Instructions/Handouts: A-fib (Atrial Fibrillation) (DC) Discharge Disposition: HOME SELF-CARE
== END 2023-07-15 10:12 | disposition home or self-care (01) | DRG 282 ==
LOC: EC 13:54 → 3SCARD 18:22 → OBSVTOIN 07-14 12:39
PROVIDERS: ADMIT Internal Medicine; ATTEND Internal Medicine
DX: I48.0 Paroxysmal atrial fibrillation (principal); I21.A1 Myocardial infarction type 2; E86.0 Dehydration; I10 Essential (primary) hypertension; I25.10 Atherosclerotic heart disease of native coronary artery without angina pectoris; I95.1 Orthostatic hypotension; N40.0 Benign prostatic hyperplasia without lower urinary tract symptoms; I08.3 Combined rheumatic disorders of mitral, aortic and tricuspid valves; I25.2 Old myocardial infarction; I44.7 Left bundle-branch block, unspecified; R00.0 Tachycardia, unspecified; E55.9 Vitamin D deficiency, unspecified; Z79.01 Long term (current) use of anticoagulants; Z82.49 Family history of ischemic heart disease and other diseases of the circulatory system; Z79.899 Other long term (current) drug therapy; Z96.653 Presence of artificial knee joint, bilateral; Z87.19 Personal history of other diseases of the digestive system
CPT/HCPCS: 36415; 71045; 80048; 80053; 80061; 81001; 82550; 83036; 83605; 83735; 84443; 84484; 85025; 85610; 85730; 93005; 93306; 94760; 96361; 96365; 96366; 96368; 99291

== ENCOUNTER 2023-08-18 09:20 | Day surgery (SDC) | payer MEDICARE ==
[2023-08-16 09:01] VITALS: BMI 20.6
[2023-08-18 10:01] VITALS: RESP 16; TEMP 97.5
[2023-08-18] MEDS ORDERED: LACTATED RINGERS 1,000 ML IV ONE (10:30)
[2023-08-18] MEDS: BENZOCAINE SPRAY 1 CAN TOPICAL ONE ×2 (10:54→11:07)
[2023-08-18] MEDS ORDERED: PROPOFOL 10 MG/ML 20 ML VIAL IV ONE (10:58)
[2023-08-18] MEDS ORDERED: LIDOCAINE 1% INJ 10MG/ML (20 ML MDV) ONE (10:58)
--- NOTE | 2023-08-18 11:46 | ECHOT ---
TRANSESOPHAGEAL ECHOCARDIOGRAM TRANSESOPHAGEAL ECHOCARDIOGRAM: INDICATION: To rule out intracardiac thrombus prior to cardioversion. PROCEDURE NOTE: After obtaining informed consent, transesophageal echocardiogram was performed in left lateral position using an Omniplane probe. Local and IV sedation were obtained by the executive director global brand marketing. The patient tolerated the procedure well without any obvious immediate complications. FINDINGS: 1. There is no intracardiac thrombus within the left atrial appendage, left atrium, right atrium, right ventricle, or left ventricle. 2. Left ventricle has normal size, shows mild LV systolic dysfunction with an ejection fraction 45%. 3. There is biatrial enlargement. 4. Mitral valve shows wvbx-[id number] central mitral regurgitation. 5. There is mild tricuspid regurgitation. 6. There is evidence of uceg-ex-knbpv shunt by color-flow Doppler. There is no evidence of xtzew-ur-xmbn shunt by agitated saline contrast study. 7. Aortic root appears mildly dilated, measured 3.8 cm. 8. Aortic valve is a 3-leaflet valve. There is mild aortic regurgitation noted. CONCLUSIONS: 1. No intracardiac thrombus within the left atrial appendage. 2. Mild LV systolic dysfunction. 3. Dort-bi-lsuonkon central mitral regurgitation. PLAN: The patient will undergo cardioversion. CARDIOVERSION NOTE: INDICATION: Persistent atrial fibrillation. PROCEDURE NOTE: The patient underwent cardioversion with synchronized DC current using 200 joules. I initially shocked him with 150 joules, converted to sinus rhythm, went back into atrial fibrillation again, and following a second shock, he stayed in sinus rhythm. We will discharge him home on Toprol 25 mg daily along with Xarelto. An intracardiac thrombus was ruled out with the GIA, and the patient is adequately anticoagulated. MMODL / IJN: [id number] /
[2023-08-18 12:29] VITALS: BP 142/87; PULSE 61
== END 2023-08-18 12:40 | disposition home or self-care (01) ==
LOC: OR 09:20
PROVIDERS: ATTEND Internal Medicine Cardiovascular Disease
DX: I08.3 Combined rheumatic disorders of mitral, aortic and tricuspid valves (principal); I48.19 Other persistent atrial fibrillation; I25.10 Atherosclerotic heart disease of native coronary artery without angina pectoris; I10 Essential (primary) hypertension; F17.210 Nicotine dependence, cigarettes, uncomplicated; Z79.01 Long term (current) use of anticoagulants; Z79.899 Other long term (current) drug therapy
CPT/HCPCS: 93312; 93320; 93325; 92960; J2001; J2704

== ENCOUNTER 2024-01-03 07:47 | Day surgery (SDC) | payer MEDICARE ==
[2024-01-03] MEDS: LACTATED RINGERS 1,000 ML IV ONE (08:41)
[2024-01-03 09:05] VITALS: PULSE 44; TEMP 97
[2024-01-03] MEDS ORDERED: PROPOFOL 10 MG/ML 20 ML VIAL IV ONE (09:32)
--- NOTE | 2024-01-03 09:47 | P.PCN ---
Date of Procedure: 01/03/24 Procedure(s) Performed: BRIEF HISTORY: Patient is a 83-year-old, pleasant, white male scheduled for an upper endoscopy as a part of evaluation of intermittent dysphagia to solids and liquids for the last 5 years duration.. Last EGD 4 years ago revealed evidence of tight lower esophageal sphincter but no evidence of esophageal stricture. As part of evaluation he recently had an esophageal manometry done about 3 weeks ago but unfortunately the probe was effective and no swallows were recorded and hence study was invalid. PROCEDURE PERFORMED: Esophagogastroduodenoscopy. PREOPERATIVE DIAGNOSIS: Intermittent dysphagia to solids and liquids of 5 years.. IV sedation per anesthesia. PROCEDURE: After informed consent was obtained, the patient was brought into the endoscopy unit. IV sedation was administered by Anesthesia under continuous monitoring. Initially the Olympus GIF-140 video endoscope was inserted into the mouth. Esophagus intubated without any difficulty. It was gradually advanced into the stomach and duodenum and carefully examined. The bulb and the second part of the duodenum appeared normal. The scope at this time was withdrawn to the stomach, adequately insufflated with air, and upon careful examination, mucosa of the antrum, body, cardia and the fundus appeared normal. The scope was then withdrawn into the esophagus. The GE junction was located at 41 cm from the incisors. The esophagus appeared normal. There were no erosions or ulcerations seen. There was no evidence of esophageal stricture there was some esophageal dysmotility noted and the patient tolerated the procedure well. IMPRESSION: 1. Evidence of esophageal dysmotility but no evidence of esophageal stricture. 2. Normal-appearing stomach and duodenum. RECOMMENDATIONS: The findings of this examination were discussed with the patient as well as his family. He was advised to continue with small frequent meals. If he continues to have persistent dysphagia will be rescheduled for esophageal manometry to evaluate further.
[2024-01-03 10:19] VITALS: BP 139/82; RESP 16
== END 2024-01-03 10:42 | disposition home or self-care (01) ==
LOC: ORWHC2ENDO 07:47
PROVIDERS: ATTEND Internal Medicine Gastroenterology
DX: K22.4 Dyskinesia of esophagus (principal); I48.91 Unspecified atrial fibrillation; I25.2 Old myocardial infarction; I10 Essential (primary) hypertension; J44.9 Chronic obstructive pulmonary disease, unspecified; N40.0 Benign prostatic hyperplasia without lower urinary tract symptoms; Z79.01 Long term (current) use of anticoagulants; Z79.899 Other long term (current) drug therapy
CPT/HCPCS: 43235; J2704

== ENCOUNTER 2024-07-01 05:44 | Day surgery (SDC) | payer MEDICARE ==
[2024-06-25 09:41] VITALS: BMI 19.8
[2024-07-01] MEDS ORDERED: SODIUM CHLORIDE 0.9% 1,000 ML IV SCH (06:02)
[2024-07-01] MEDS: SODIUM CHLORIDE 0.9% 500 ML 500 ML IV ONE (06:24)
[2024-07-01 06:37] VITALS: BP 154/93; PULSE 93; RESP 16; TEMP 97.7
--- NOTE | 2024-07-01 16:44 | P.EPPROC ---
- EP Procedure Note Electrophysiology Procedure Note: Diagnosis Recurrent presyncope Twelve-lead EKG shows atrial fibrillation with a left bundle branch block pattern, heart rate 91 beats a minute Tilt table test Baseline blood pressure 181/110 mmHg baseline heart rate 105 beats a minute Patient was tilted upright in angle of 70 degrees per protocol There was a gradual progressive drop in blood pressure with the lowest blood pressure of 101/63 mmHg. Pulse rate 97 beats a minute When he was laid supine his blood pressure improved to 141/84 mmHg. Heart rates remained in the 70s and 80s Impression Atrial fibrillation with a left bundle branch block pattern Orthostatic hypotension syndrome with a progressive decline in blood pressure a ssociated with feeling lightheadedness
== END 2024-07-01 10:31 | disposition home or self-care (01) ==
LOC: CATHEP 05:44
PROVIDERS: ATTEND Internal Medicine Clinical Cardiac Electrophysiology
DX: R55 Syncope and collapse
CPT/HCPCS: 93660